=== PATIENT | female | born 1940 | race Two or more races ===

== ENCOUNTER 2024-09-04 01:08 | Inpatient (IN) | payer MEDICARE, OTHER ==
[~2024-09-04] VITALS: Ht 157.5 cm; Wt 58.6 kg
[~2024-09-04 01:08] MED LIST: AMIO200T13 PO; APIX5TAB PO; CEFD300C2 PO; EMPA1TAB PO; EZET1TAB90; FAMO40TA7 PO; FURO1TAB31 PO; LEVO112T2 PO; MID10T PO; SPIR100T4 PO
--- NOTE | 2024-09-04 01:45 | ED.PDOC ---
GI ASSESSMENT HPI Comments 83-year-old female who came to ER via EMS for abdominal pain. Patient has history of nonalcoholic liver cirrhosis. About an hour prior to arrival, patient ate some cereal, and shortly after was she started having abdominal pain, with the episodes of nausea and vomiting. Noted also abdominal distention. Persistence of symptoms prompted patient to come to the ER. Chief Complaint: Abdominal Pain Time Seen by MD: 01:44 Reviewed Notes: Solution Maker Notes Allergies: Coded Allergies: NO KNOWN ALLERGIES (Unverified , 08/12/24) Home Meds Active Scripts Midodrine HCl (Midodrine HCl) 10 Mg Tab, 10 MG PO TID for 30 Days, #90 TAB Prov:NICOL BRIONES MD 08/18/24 Cefdinir (Cefdinir) 300 Mg Cap, 1 CAP PO BID for 7 Days, #14 CAP Prov:NICOL BRIONES MD 08/18/24 Furosemide (Lasix) 40 Mg Tab, 40 MG PO DAILY for 30 Days, #30 TAB Prov:NICOL BRIONES MD 08/18/24 Spironolactone (Spironolactone) 100 Mg Tab, 1 TAB PO DAILY for 30 Days, #30 TAB 11 Refills Prov:NICOL BRIONES MD 08/18/24 Reported Medications Empagliflozin (Jardiance) 10 Mg Tab, 1 TAB PO DAILY 08/13/24 Ezetimibe-Simvastatin (Ezetimibe/Simvastatin 10-20 mg) 1 Tab Tab, 1 EA 08/13/24 Amiodarone HCl (Amiodarone HCl) 200 Mg Tab, 1 TAB PO BID 08/13/24 Famotidine (Famotidine) 40 Mg Tab, 1 TAB PO DAILY 08/13/24 Levothyroxine Sodium (Synthroid) 112 Mcg Tab, 1 TAB PO DAILY 08/13/24 Apixaban Base (ELIQUIS) 5 Mg Tab, 1 TAB PO BID 08/13/24 Information Source: Patient, Emergency Med Personnel Mode of Arrival: EMS Timing: Minutes Duration: Since onset Prehospital treatment: None Quality: Aching Vomitus: Watery Stool: Normal Severity: Moderate Recent: Possible spoiled food Recent Hx of: Liver Disease Pain Location: Diffuse Modifying Factors: Nothing Associated sign and symptoms: Nausea, Vomiting, Abdominal Pain Past Medical History PAST MEDICAL HISTORY: AFIB, Liver (Liver cirrhosis) Surgical History: Pacemaker UNIT NURSE History: Denies all UNIT NURSE Hx Family History Family History: Reviewed,noncontributory to illness Social History Smoker: Non-Smoker Alcohol: Denies ETOH Use Drugs: Denies Drug Use Lives In: Home Constitutional: denies: chills, diaphoresis, fatigue, fever, malaise, sweats, weakness, others EENTM: denies: blurred vision, double vision, ear bleeding, ear discharge, ear drainage, ear pain, ear ringing, eye pain, eye redness, hearing loss, mouth pain, mouth swelling, nasal discharge, nose bleeding, nose congestion, nose pain, photophobia, tearing, throat pain, throat swelling, voice changes, others Respiratory: denies: cough, hemoptysis, orthopnea, SOB at rest, shortness of breath, SOB with excertion, stridor, wheezing, others Cardiovascular: denies: chest pain, dizzy spells, diaphoresis, Dyspnea on exertion, edema, irregular heart beat, left arm pain, lightheadedness, palpitations, PND, syncope, others Gastrointestinal: reports: abdomen distended, abdominal pain, nausea, vomiting; denies: blood streaked bowels, constipated, diarrhea, dysphagia, difficulty swallowing, hematemesis, melena, poor appetite, poor fluid intake, rectal bleeding, rectal pain, others Genitourinary: denies: abnormal vagina bleeding, burning, dyspareunia, dysuria, flank pain, frequency, hematuria, incontinence, pain, , vagina discharge, urgency, others Neurological: denies: dizziness, fainting, headache, left sided numbness, left sided weakness, numbness, paresthesia, pre-existing deficit, right sided numbness, right sided weakness, seizure, speech problems, tingling, tremors, weakness, others Musculoskeletal: denies: back pain, gout, joint pain, joint swelling, muscle pain, muscle stiffness, neck pain, others Integumetry: denies: bruises, change in color, change in hair/nails, dryness, laceration, lesions, lumps, rash, wounds, others Allergic/Immunocompromised: denies: Difficulty Healing, Frequent Infections, Hives, Itching, others Hematologic/Lymphatic: denies: anemia, blood clots, easy bleeding, easy bruising, swollen glands, others Endocrine: denies: excessive hunger, excessive sweating, excessive thirst, excessive urination, flushing, intolerance to cold, intolerance to heat, unexplained weight gain, unexplained weight loss, others Psychiatric: denies: anxiety, bipolar disorder, depression, hopeless, panic disorder, schizophrenia, sleepless, suicidal, others Physical Exam General Appearance: No Apparent Distress, Normal HEENT: Normal ENT Inspection, Pharynx Normal, TMs Normal Neck: Full Range of Motion, Non-Tender, Normal, Normal Inspection Respiratory: Chest Non-Tender, Lungs Clear, No Accessory Muscle Use, No Respiratory Distress, Normal Breath Sounds Cardiovascular: No Edema, No JVD, No Murmur, No Gallop, Normal Peripheral Pulses, Regular Rate/Rhythm Breast Exam: Deferred Gastrointestinal: No Organomegaly, Non Tender, No Pulsatile Mass, Normal Bowel Sounds, Soft Genitalia: Deferred Pelvic: Deferred Rectal: Deferred Extremities: No calf tenderness, Normal capillary refill, Normal inspection, Normal range of motion, Non-tender, No pedal edema Musculoskeletal : Apperance: Normal 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 Was a procedure done?: No GI differential Dx Differential Diagnosis: Diverticular disease, Gastritis/PUD, Gastroenteritis, Hernia, Hepatitis, UTI, Urolithiasis, Electrolyte Imbalance, Food Poisoning X-Ray, Labs, Meds, VS Vital Signs Date Time Temp Pulse Resp B/P (MAP) Pulse Ox O2 Delivery O2 Flow Rate FiO2 09/04/24 04:05 72 15 106/52 (70) 95 09/04/24 02:07 97.9 75 13 101/44 (63) 95 97.9 09/04/24 01:13 93 09/04/24 01:08 97.4 90 18 107/72 (84) 97 97.4 Lab Test 09/04/24 02:50 09/04/24 01:50 Range/Units Troponin I High Sensitivity 13 17 </=34 ng/L White Blood Count 14.6 H 4.4-10.8 10^3/uL Red Blood Count 5.13 4.0-5.20 10^6/uL Hemoglobin 15.9 12.2-16.2 g/dL Hematocrit 47.7 H 36.0-46.0 % Mean Corpuscular Volume 93.0 80.0-100.0 fL Mean Corpuscular Hemoglobin 31.0 28.0-32.0 pg Mean Corpuscular Hemoglobin Concent 33.3 32.0-36.0 g/dL Red Cell Distribution Width 19.1 H 11.8-14.3 % Platelet Count 240 140-450 10^3/uL Mean Platelet Volume 8.8 6.9-10.8 fL Neutrophils (%) (Auto) 86.4 H 37.0-80.0 % Lymphocytes (%) (Auto) 9.5 L 10.0-50.0 % Monocytes (%) (Auto) 3.8 0.0-12.0 % Eosinophils (%) (Auto) 0.0 0.0-7.0 % Basophils (%) (Auto) 0.3 0.0-2.0 % Neutrophils # (Auto) 12.6 H 1.6-8.6 10 ^3/uL Lymphocytes # (Auto) 1.4 0.4-5.4 10 ^3/uL Monocytes # (Auto) 0.6 0-1.3 10 ^3/uL Eosinophils # (Auto) 0 0-0.8 10 ^3/uL Basophils # (Auto) 0 0-0.2 10 ^3/uL Nucleated Red Blood Cells 0.1 % Sodium Level 133 L 136-145 mmol/L Potassium Level 4.5 3.5-5.1 mmol/L Chloride Level 104 98-107 mmol/L Carbon Dioxide Level 15 L 20-31 mmol/L Anion Gap 14 5-15 Blood Urea Nitrogen 72 H 9-23 mg/dL Creatinine 3.30 H 0.550-1.02 mg/dL Glomerular Filtration Rate Calc 13 >90 mL/min BUN/Creatinine Ratio 21.8 H 10.0-20.0 Serum Glucose 109 H 74-106 mg/dL Calcium Level 8.7 8.7-10.4 mg/dL Total Bilirubin 2.3 H 0.2-1.0 mg/dL Aspartate Amino Transferase (AST) 371 H 13-40 U/L Alanine Aminotransferase (ALT) 201 H 7-40 U/L Alkaline Phosphatase 180 H 46-116 U/L Total Protein 7.6 5.7-8.2 g/dL Albumin 3.2 3.2-4.8 g/dL Lipase 117 H 12-53 U/L Current Medications Medications (Trade) Dose Ordered Sig/Kaylee Route Start Time Stop Time Status Last Admin Ondansetron HCl (Zofran) 4 mg ONCE ONCE IV 09/04/24 02:00 09/04/24 02:01 DC 09/04/24 02:00 Sodium Chloride 1,000 ml @ 250 mls/hr Q4H ONCE IV 09/04/24 02:00 09/04/24 05:59 09/04/24 02:00 Time of 1ST Reevaluation: 01:40 Reevaluation 1ST: Unchanged Patient Education/Counseling: Diagnosis, Treatment Family Education/Counseling: No Family Present Departure 1 Departure Time of Disposition: 04:00 Impression: Primary Impression: Acute renal injury Additional Impressions: Dehydration Nausea and vomiting Disposition: 01 HOME / SELF CARE / HOMELESS Condition: Stable Discharged With: Self Comments Nausea and Vomiting with Acute Kidney Injury Chief Complaint: Nausea and vomiting x 2 days History of Present Illness: 83-year-old female with a history of nonalcoholic liver cirrhosis presents via EMS with complaints of nausea and vomiting for the past two days. Patient reports sensation of abdominal swelling but explicitly denies abdominal pain. Initial laboratory studies are significant for acute kidney injury with elevated BUN and creatinine, mild hyponatremia, elevated liver enzymes, and leukocytosis. Imaging reveals ascites and known cirrhotic changes. Review of Systems: Constitutional: Reports nausea and vomiting Gastrointestinal: Reports abdominal swelling, denies abdominal pain All other systems reviewed and negative Lab Results: BUN: 72 mg/dL (Elevated) Creatinine: 3.3 mg/dL (Elevated) Sodium: 133 mEq/L (Mild hyponatremia) Liver Function Tests: - ALT: 201 IU/L (Elevated) - AST: 371 IU/L (Elevated) - Total Bilirubin: 2.3 mg/dL (Elevated) Lipase: 117 U/L (Mildly elevated) WBC: 14.6 K/uL (Elevated) Imaging and Other Relevant Results: Chest X-ray: No acute pathology CT Abdomen/Pelvis: Preliminary findings show ascites and cirrhotic changes of the liver. Awaiting final radiology report. Medical Decision Making: Summary Statement: 83-year-old female with history of liver cirrhosis presenting with nausea/vomiting and found to have acute kidney injury, dehydration, and laboratory evidence of hepatic dysfunction. Problem List: 1. Acute kidney injury 2. Dehydration 3. Nausea and vomiting 4. Liver cirrhosis with elevated liver enzymes 5. Leukocytosis Differential Diagnosis: 1. Prerenal azotemia due to dehydration 2. Hepatorenal syndrome 3. Acute on chronic liver failure 4. Viral gastroenteritis 5. Medication-induced nausea ED Course: Patient received IV fluid bolus and Zofran for symptomatic relief of nausea. Decision made to admit for further management of acute kidney injury, dehydration, and underlying liver disease. Assessment and Plan: 1. Acute Kidney Injury: - Likely prerenal due to dehydration vs. hepatorenal syndrome - Will continue IV fluid resuscitation - Trending of renal function - Nephrology consultation to be considered 2. Nausea/Vomiting: - Symptomatic management with antiemetics - Monitor oral intake 3. Liver Cirrhosis with elevated LFTs: - Continue monitoring liver function - Gastroenterology consultation - Management of ascites 4. Leukocytosis: - Monitor for signs of infection - Blood cultures if fever develops Disposition: Admit to Medicine service Billing Information: ICD-10: N17.9 - Acute kidney failure, unspecified ICD-10: K74.60 - Unspecified cirrhosis of liver ICD-10: R11.2 - Nausea with vomiting, unspecified ICD-10: E86.0 - Dehydration Critical Care Note Critical Care Time?: No Stability Stability form required: No Heart Score Heart Score: Heart Score Response (Comments) Value History N/A 0 EKG N/A 0 Age N/A 0 Risk Factors N/A 0 Troponin N/A 0 Total 0 I personally scribed for CATIE CONTEH MD ([email or web address]) on 09/04/24 at 01:44. Electronically submitted by Adelso White ([email or web address]). CATIE CONTEH MD Sep 04, 2024 01:44
[2024-09-04] MEDS: ONDANSETRON HCL 4 MG/2 ML VIAL IV ONE (02:00)
[2024-09-04] MEDS: SODIUM CHLORIDE 0.9% 1,000 ML IV ONE (02:00)
[2024-09-04 02:10] VITALS: PULSE 68; RESP 15; O2SAT 98
--- NOTE | 2024-09-04 02:51 | DVH ---
CHEST RADIOGRAPH Indication: SOB Technique: Single frontal view of the chest was obtained COMPARISON: XY CHEST PORTABLE on DOS: 08/12/24 FINDINGS: Lines and Tubes: Left anterior chest wall cardiac pacing device. Lungs: Clear Pleura: No effusion. No pneumothorax. Cardiomediastinal contours: Unremarkable Bones: Unremarkable IMPRESSION: 1. No acute disease.
[2024-09-04 03:06] LABS: Albumin 3.2 g/dL (3.2-4.8); Anion Gap 14 (5-15); BUN/Creatinine Ratio 21.8 (10.0-20.0); Calcium 8.7 mg/dL (8.7-10.4); Chloride 104 mmol/L (98-107); Potassium 4.5 mmol/L (3.5-5.1); Total Protein 7.6 g/dL (5.7-8.2)
[2024-09-04 03:19] LABS: Basophils # (auto) 0 10 ^3/uL (0-0.2); Basophils % (auto) 0.3 % (0.0-2.0); Eosinophils # (auto) 0 10 ^3/uL (0-0.8); Hematocrit 47.7 % (36.0-46.0); Hemoglobin 15.9 g/dL (12.2-16.2); Lymphocytes # (auto) 1.4 10 ^3/uL (0.4-5.4); Lymphocytes % (auto) 9.5 % (10.0-50.0); Mean Corpuscular Hgb Conc. 33.3 g/dL (32.0-36.0); Monocytes # (auto) 0.6 10 ^3/uL (0-1.3); Monocytes % (auto) 3.8 % (0.0-12.0); Neutrophils # (auto) 12.6 10 ^3/uL (1.6-8.6); Neutrophils % (auto) 86.4 % (37.0-80.0); Nucleated Red Blood Cells % 0.1 %; Platelet Count (auto) 240 10^3/uL (140-450); Red Blood Cells 5.13 10^6/uL (4.0-5.20); Red Cell Distribution Width 19.1 % (11.8-14.3); White Blood Cell 14.6 10^3/uL (4.4-10.8)
[2024-09-04 03:21] LABS: Alanine Aminotransferase 201 U/L (7-40); Alkaline Phosphatase 180 U/L (46-116); Aspartate Aminotransferase 371 U/L (13-40); Bilirubin, Total 2.3 mg/dL (0.2-1.0); Blood Urea Nitrogen 72 mg/dL (9-23); Carbon Dioxide 15 mmol/L (20-31); Glucose 109 mg/dL (74-106); Lipase 117 U/L (12-53); Sodium 133 mmol/L (136-145)
--- NOTE | 2024-09-04 04:48 | DVH ---
Exam: CT CT AB PEL WO CON-NO ORAL OR IV History: abd pain Comparison Study: CT CT AB PEL WO CON-NO ORAL OR IV on DOS: 08/12/24 Technique: Multidetector spiral CT of the abdomen was performed from lung bases to pubic symphysis. I maging was performed without IV contrast. Axial, coronal and sagittal multiplanar reformats were obta ined from the axial data set by the technologist. Radiation Dose : 1. Abdomen/Pelvis: CTDIvol 13.8 mGy, DLP 806 mGy*cm. Findings: Evaluation of solid organs is limited due to lack of intravenous contrast use. Lung Bases: Cardiomegaly. Coronary artery calcifications. Vascular calcifications of the aorta. Left chest wall pacemaker. Liver: Hepatic cirrhosis. Gallbladder and Biliary Tree: Unremarkable Spleen: Unremarkable Pancreas: The pancreas is grossly normal in appearance. Adrenal Glands: Unremarkable Kidneys: Kidneys are grossly normal without calculi or hydronephrosis. Bladder: Grossly unremarkable for degree of distention. Bowel: The stomach is grossly normal in appearance. Small bowel and colon are normal in caliber and d istribution. The appendix is not visualized; however, no secondary findings of acute appendicitis shyla ntified. Ascites: Small volume Lymphadenopathy: No mesenteric, retroperitoneal or periportal lymphadenopathy. Abdominal Wall and Mesentery: Unremarkable. Vasculature: The visualized abdominal aorta is normal in size and caliber. Evaluation of abdominal a nd pelvic vessels is limited due to lack of intravenous contrast. Pelvic Organs: The uterus is surgically absent. Musculoskeletal: No aggressive focal bony lesions, acute fractures or dislocation. Degenerative woods es of the spine. IMPRESSION: Hepatic cirrhosis and small volume ascites. Radiation optimization: All CT scans at this facility use at least one of these dose optimization ramiro hniques: automated exposure control mA and/or kV adjustment per patient size (includes targeted exam s where dose is matched to clinical indication) or iterative reconstruction.
--- NOTE | 2024-09-04 05:00 | ECG ---
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
[2024-09-04] MEDS ORDERED: MORPHINE SULFATE INJ 2 MG/ml SYRG IV PRN (05:30)
[2024-09-04] MEDS: SODIUM CHLORIDE 0.9% 1,000 ML IV SCH (05:30)
[2024-09-04] MEDS: cefTRIAXone 2GM/50ML D5W 50 ML IV SCH (05:30)
[2024-09-04] MEDS ORDERED: LORazepam 0.5 MG TAB PO PRN (05:30)
[2024-09-04] MEDS ORDERED: DOCUSATE SOD 100 MG CAP PO PRN (05:30)
--- NOTE | 2024-09-04 05:58 | DVHHP2 ---
History of Present Illness Reason for Visit: abd pain History of Present Illness 83-year-old female past medical history of liver cirrhosis also history of AFib with a Surgical pacemaker in place comes to the ED with complaints of abdominal pain patient with a known history of nonalcoholic liver cirrhosis states prior to arriving to the ED she had something to eat followed by acute pain and nausea and vomiting states that her abdomen feels like it is distended or bloated and because the pain in the bloating sensation would not go away patient came to the ED for further evaluation and management at this time all the patient's medications were recently adjusted this month continues to take medications La six spironolactone amiodarone and apixaban Cardiovascular: AFIB, HTN Hepatobiliary: Cirrhosis Renal/: Acute renal failure Review of Systems Constitutional: Yes: Weakness Eyes: No: Pain, Vision change, Conjunctivae inflammation, Eyelid inflammation, Other, Redness ENT: No: Ear pain, Ear discharge, Nose pain, Nose discharge, Nose congestion, Mouth pain, Mouth swelling, Throat pain, Throat swelling, Other Respiratory: No: Cough, Dry, Shortness of breath, SOB with excertion, Wheezing, Hemoptysis, Pleuritic Pain, Sputum, Wheezing, Other Cardiovascular: No: Chest Pain, Palpitations, Orthopnea, Paroxysmal Noc. Dyspnea, Edema, Lt Headedness, Other Gastrointestinal: Nausea, Vomiting, Abdominal Pain Genitourinary: No Dysuria, No Frequency, No Incontinence, No Hematuria, No Retention, No Other Musculoskeletal: No: other, neck pain, shoulder pain, arm pain, back pain, hand pain, leg pain, foot pain Skin: No: Rash, Lesions, Jaundice, Bruising, Other Neurological: Weakness Allergies: Coded Allergies: NO KNOWN ALLERGIES (Unverified , 08/12/24) Exam Vital Signs Vital Signs Date Time Temp Pulse Resp B/P (MAP) Pulse Ox O2 Delivery O2 Flow Rate FiO2 09/04/24 04:05 72 15 106/52 (70) 95 09/04/24 02:10 Room Air* 0 21 09/04/24 02:07 97.9 97.9 Exam General Appearance: No Apparent Distress, Normal HEENT: Normal ENT Inspection, Pharynx Normal, TMs Normal Neck: Full Range of Motion, Non-Tender, Normal, Normal Inspection Respiratory: Chest Non-Tender, Lungs Clear, No Accessory Muscle Use, No Respiratory Distress, Normal Breath Sounds Cardiovascular: No Edema, No JVD, No Murmur, No Gallop, Normal Peripheral Pulses, Regular Rate/Rhythm Breast Exam: Deferred Gastrointestinal: No Organomegaly, Non Tender, No Pulsatile Mass, Normal Bowel Sounds, Soft Genitalia: Deferred Pelvic: Deferred Rectal: Deferred Extremities: No calf tenderness, Normal capillary refill, Normal inspection, Normal range of motion, Non-tender, No pedal edema Musculoskeletal : Apperance: Normal 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, 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, No Motor Deficits, Normal Affect, Normal Mood, No Sensory Deficits Cerebellar Function: Normal Reflexes: Normal Skin: Dry, Normal Color, Warm Lymphatic: No Adenopathy Labs/Xrays Labs Test 09/04/24 04:58 09/04/24 01:50 Range/Units White Blood Count 14.6 H 4.4-10.8 10^3/uL Red Blood Count 5.13 4.0-5.20 10^6/uL Hemoglobin 15.9 12.2-16.2 g/dL Hematocrit 47.7 H 36.0-46.0 % Mean Corpuscular Volume 93.0 80.0-100.0 fL Mean Corpuscular Hemoglobin 31.0 28.0-32.0 pg Mean Corpuscular Hemoglobin Concent 33.3 32.0-36.0 g/dL Red Cell Distribution Width 19.1 H 11.8-14.3 % Platelet Count 240 140-450 10^3/uL Mean Platelet Volume 8.8 6.9-10.8 fL Neutrophils (%) (Auto) 86.4 H 37.0-80.0 % Lymphocytes (%) (Auto) 9.5 L 10.0-50.0 % Monocytes (%) (Auto) 3.8 0.0-12.0 % Eosinophils (%) (Auto) 0.0 0.0-7.0 % Basophils (%) (Auto) 0.3 0.0-2.0 % Neutrophils # (Auto) 12.6 H 1.6-8.6 10 ^3/uL Lymphocytes # (Auto) 1.4 0.4-5.4 10 ^3/uL Monocytes # (Auto) 0.6 0-1.3 10 ^3/uL Eosinophils # (Auto) 0 0-0.8 10 ^3/uL Basophils # (Auto) 0 0-0.2 10 ^3/uL Nucleated Red Blood Cells 0.1 % Sodium Level 133 L 136-145 mmol/L Potassium Level 4.5 3.5-5.1 mmol/L Chloride Level 104 98-107 mmol/L Carbon Dioxide Level 15 L 20-31 mmol/L Anion Gap 14 5-15 Blood Urea Nitrogen 72 H 9-23 mg/dL Creatinine 3.30 H 0.550-1.02 mg/dL Glomerular Filtration Rate Calc 13 >90 mL/min BUN/Creatinine Ratio 21.8 H 10.0-20.0 Serum Glucose 109 H 74-106 mg/dL Calcium Level 8.7 8.7-10.4 mg/dL Total Bilirubin 2.3 H 0.2-1.0 mg/dL Aspartate Amino Transferase (AST) 371 H 13-40 U/L Alanine Aminotransferase (ALT) 201 H 7-40 U/L Alkaline Phosphatase 180 H 46-116 U/L Total Protein 7.6 5.7-8.2 g/dL Albumin 3.2 3.2-4.8 g/dL Lipase 117 H 12-53 U/L Assessment/Plan Assessment/Plan Admit to [facility] Abdominal pain with a history of ascites and cirrhosis CT scan confirmed cirrhosis CHRISTOPHER possibly in the setting of hepatorenal syndrome Abdominal pain with nausea and vomiting Elevated white count noted possible SBP IV antibiotics Gentle IV hydration Possible need for GI evaluation ICD-10: N17.9 - Acute kidney failure, unspecified ICD-10: K74.60 - Unspecified cirrhosis of liver ICD-10: R11.2 - Nausea with vomiting, unspecified ICD-10: E86.0 - Dehydration. Failed Plan discussed with: Patient My Orders Orders - MOMO BRENNAN MD Procedure Category Date Status Time Admit ADMIT 09/04/24 Transmitted 05:27 Code Status CODE 09/04/24 Transmitted 05:27 Vital Signs JULIAN 09/04/24 In Process 05:27 Review Orders With JULIAN 09/04/24 In Process Adm. 05:27 Npo (Nothing By DIET 09/04/24 Transmitted Mouth) Diet Breakfast Sodium Chloride 0.9% PHA 09/04/24 Logged 05:30 Lorazepam Tablet PHA 09/04/24 Logged (Ativan Tablet) 05:30 Docusate Sodium PHA 09/04/24 Transmitted Capsule (Colace 05:30 Notify Of Changes [facility] 09/04/24 In Process From Base 05:27 Advance Directive JULIAN 09/04/24 In Process 05:27 Patient Condition ORDERS 09/04/24 Transmitted 05:27 Allergies [facility] 09/04/24 In Process 05:27 Ondansetron Hcl [facility] 09/04/24 Transmitted (Zofran) 05:30 Morphine 2mg Iv Q4hprn PHA 09/04/24 Transmitted 05:30 Notify Md Of Changes [facility] 09/04/24 In Process From Base 05:27 Oxygen By Nasal RT 09/04/24 Transmitted Cannula 05:27 Amiodarone Tablet [facility] 09/04/24 Transmitted (Cordarone Tablet) 10:00 Furosemide Tablet PHA 09/04/24 Transmitted (Lasix Tablet) 10:00 Levothyroxine Tablet [facility] 09/04/24 Transmitted (Synthroid Tablet) 10:00 Midodrine Tablet [facility] 09/04/24 Transmitted (Proamatine Tablet) 06:00 (Nf) Famotidine PHA 09/04/24 Transmitted 10:00 (Nf) Spironolactone PHA 09/04/24 Transmitted 10:00 Ceftriaxone Ivpb [facility] 09/04/24 Transmitted Rocephin 05:30 * [facility] [employer] CONS 09/04/24 Transmitted 05:27 Date of Service: Sep 04, 2024 Billing Provider: MOMO BRENNAN MD Common Visit Codes: [id number] INP/OBS CARE (HIGH) MOMO BRENNAN MD Sep 04, 2024 05:58
[2024-09-04] MEDS: MIDODRINE HCL 10 MG TAB PO SCH ×2 (06:00→12:00)
[2024-09-04] MEDS: LEVOTHYROXINE SODIUM 112 MCG TAB PO SCH (06:38)
[2024-09-04 09:09] VITALS: PULSE 110; PULSE 96; RESP 18; TEMP 97.9; O2SAT 96; O2SAT 98
[2024-09-04] MEDS: FUROSEMIDE 40 MG TAB PO SCH (10:00)
[2024-09-04] MEDS: SPIRONOLACTONE 25 MG TAB PO SCH (10:00)
[2024-09-04] MEDS: FAMOTIDINE 20 MG TAB PO SCH (10:29)
[2024-09-04] MEDS: AMIODARONE HCL 200 MG TAB PO SCH (10:30)
[2024-09-04 12:30] VITALS: BP 107/55; PULSE 96; RESP 18; TEMP 97.8; O2SAT 96
--- NOTE | 2024-09-04 13:32 | DVHPN2 ---
Assessment/Plan Assessment/Plan Progress note 83 year old female with JON cirrhosis, afib on eliquis, sick sinus on PPM admitted for nause and vomiting. 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 on CKD start ceftriaxone tap if pocket available POCUS abd midodrine lasix aldactone nephro consult pain mgmt resume home meds and eliquis full code diet renal dvt ppx on eliquis Plan discussed with: Patient My Orders Orders - NICOL BRIONES MD Procedure Category Date Status Time Midodrine Tablet PHA 09/04/24 In Process (Proamatine Tablet) 12:00 Clear Liq Diet DIET 09/04/24 Transmitted Lunch *[facility] CONS 09/04/24 Transmitted -[place] 11:44 Communication Order ORDERS 09/04/24 Transmitted 11:45 Date of Service: Sep 04, 2024 Billing Provider: NICOL BRIONES MD Common Visit Codes: [id number] INP/OBS CARE(HIGH) NICOL BRIONES MD Sep 04, 2024 13:32
--- NOTE | 2024-09-04 13:35 | DVHINCON2 ---
GI Consult Consult Note GI consult note Date of Consultation: 09/04/2024 Chief Complaint: Cirrhosis evaluation Referring Physician: Dr. Calderón H&P: 83-year-old female presented to ER with abdominal pain Patient has history of nonalcoholic liver cirrhosis Patient has abdominal distention, which improved after catheterization Patient has nausea and vomiting, denies hematemesis No melena or red blood in stool Multiple EGDs in past, last EGD 2020 Dr. Pinto. Pathology shows mild chronic inactive gastritis with focal intestinal metaplasia Status post paracentesis two weeks ago at [facility] Past Medical History: AFIB, Liver (Liver cirrhosis) Past Surgical History: Pacemaker Social History: NO smoking, drinking ETOH and use of illegal drugs. Family History: Noncontributory Review of Systems: Constitutional: no fever, chill, weight loss HEENT: no eye pain, no hearing loss, no oral lesion, no scleral icterus Heart: no chest pain, no chest pressure Lung: no cough, no dyspnea with exertion Abdomen: see HPI Physical exam: General: NAD, AAOX3 Chest: lung león clear to auscultation Heart: RRR, no murmur Abdomen: Mild-distended, no tenderness to palpation, +BS Labs: Labs Test 09/04/24 04:58 09/04/24 01:50 Range/Units Troponin I High Sensitivity 14 </=34 ng/L White Blood Count 14.6 H 4.4-10.8 10^3/uL Red Blood Count 5.13 4.0-5.20 10^6/uL Hemoglobin 15.9 12.2-16.2 g/dL Hematocrit 47.7 H 36.0-46.0 % Mean Corpuscular Volume 93.0 80.0-100.0 fL Mean Corpuscular Hemoglobin 31.0 28.0-32.0 pg Mean Corpuscular Hemoglobin Concent 33.3 32.0-36.0 g/dL Red Cell Distribution Width 19.1 H 11.8-14.3 % Platelet Count 240 140-450 10^3/uL Mean Platelet Volume 8.8 6.9-10.8 fL Neutrophils (%) (Auto) 86.4 H 37.0-80.0 % Lymphocytes (%) (Auto) 9.5 L 10.0-50.0 % Monocytes (%) (Auto) 3.8 0.0-12.0 % Eosinophils (%) (Auto) 0.0 0.0-7.0 % Basophils (%) (Auto) 0.3 0.0-2.0 % Neutrophils # (Auto) 12.6 H 1.6-8.6 10 ^3/uL Lymphocytes # (Auto) 1.4 0.4-5.4 10 ^3/uL Monocytes # (Auto) 0.6 0-1.3 10 ^3/uL Eosinophils # (Auto) 0 0-0.8 10 ^3/uL Basophils # (Auto) 0 0-0.2 10 ^3/uL Nucleated Red Blood Cells 0.1 % Sodium Level 133 L 136-145 mmol/L Potassium Level 4.5 3.5-5.1 mmol/L Chloride Level 104 98-107 mmol/L Carbon Dioxide Level 15 L 20-31 mmol/L Anion Gap 14 5-15 Blood Urea Nitrogen 72 H 9-23 mg/dL Creatinine 3.30 H 0.550-1.02 mg/dL Glomerular Filtration Rate Calc 13 >90 mL/min BUN/Creatinine Ratio 21.8 H 10.0-20.0 Serum Glucose 109 H 74-106 mg/dL Calcium Level 8.7 8.7-10.4 mg/dL Total Bilirubin 2.3 H 0.2-1.0 mg/dL Aspartate Amino Transferase (AST) 371 H 13-40 U/L Alanine Aminotransferase (ALT) 201 H 7-40 U/L Alkaline Phosphatase 180 H 46-116 U/L Total Protein 7.6 5.7-8.2 g/dL Albumin 3.2 3.2-4.8 g/dL Lipase 117 H 12-53 U/L Imaging: CT abdomen pelvis IMPRESSION: Hepatic cirrhosis and small volume ascites. Assessment: Nausea and vomiting Liver cirrhosis JON Gastritis Ascites Plan: Discussed with Dr. Guerrero Hepatitis panel Liver ultrasound PT INR, ammonia, DEQUAN Zofran and Protonix Clear liquid diet advance as tolerated We will continue to follow patient Plan discussed with patient and RN Thank you for this consult Date of Service: Sep 04, 2024 Billing Provider: JULIEN PAINTER Common Visit Codes: CONSULT ONLY Consultation Codes: [id number] CONSULT <45MIN JULIEN PAINTER Sep 04, 2024 13:35
--- NOTE | 2024-09-04 14:46 | DVH ---
INDICATION: liver cirrhosis, JON TECHNIQUE: Multiple real-time sonographic images were obtained of the right upper quadrant. COMPARISON: None FINDINGS: The liver demonstrates coarsened echotexture without focal mass lesions. The liver measures 16 cm. There is no intrahepatic or extrahepatic ductal dilatation. The common duct measures not we ll visualized due to obscuration from bowel gas. No flow is visualized in the portal vein. Gallbladder sludge. The gallbladder wall measures 4 mm and is thickened. The right kidney measures 9.2 cm. The right kidney is normal in contour, size, and shape. The echoge nicity is normal. There is no hydronephrosis. The pancreas is not well visualized due to overlying bowel gas. IMPRESSION: Hepatic cirrhosis. Possible portal vein thrombus. Gallbladder sludge. Nonspecific gallbladder wall thickening which can be seen in setting of chronic l iver disease.
[2024-09-04 15:02] LABS: Hepatitis B Core Total AB Negative (Negative)
[2024-09-04 15:28] LABS: Hepatitis A Total Antibody Positive (Negative); Hepatitis B Surface Antibody Negative (Negative)
[2024-09-04 15:29] LABS: Hepatitis B Surface Antigen Negative (Negative); Hepatitis C Antibody Negative (Negative)
--- NOTE | 2024-09-04 15:33 | DVHNC2 ---
Other Procedure Notes PARACENTESIS USG guided PROCEDURE SUMMARY: A time-out was performed. My hands were washed immediately prior to the procedure. I wore sterile gloves throughout the procedure. The area was cleansed and draped in usual sterile fashion using chlorhexidine scrub. Anesthesia was achieved with 1% lidocaine. The right lumbar region of the abdomen was prepped and draped in a sterile fashion using chlorhexidine scrub. 1% lidocaine was used to numb the skin, soft tissue and peritoneum. The paracentesis catheter was inserted and advanced with negative pressure until slightly yellowish colored fluid was aspirated. Approximately 60 mL of ascitic fluid was collected and sent for laboratory analysis. The catheter was then connected to the Vacutainer and 1 liters of additional ascitic fluid were drained. The catheter was removed and no leaking was noted. A band-aid was placed over the puncture wound. The patient tolerated the procedure well without any immediate complications. Gerardo Lemus PGY2 Internal Medicine Nicol Briones MD Attending Physician Date of Service: Sep 04, 2024 Billing Provider: NICOL BRIONES MD Common Visit Codes: PROCEDURE ONLY Procedure Codes: [id number] W/O IMAGING GERARDO LEMUS RESIDENT Sep 04, 2024 15:33 NICOL BRIONES MD Sep 04, 2024 21:21
[2024-09-04 16:03] LABS: INR 1.49 (0.9-1.15); Prothrombin Time 15.2 sec (9.3-11.8)
[2024-09-04 17:13] VITALS: BP 91/58; PULSE 89; RESP 18; TEMP 98; O2SAT 95
[2024-09-04 18:50] VITALS: BP 115/73; PULSE 89; RESP 18; TEMP 98; O2SAT 95
[2024-09-04 19:15] LABS: Body Fluid Red Blood Cells 290 CUMM (0-2000); Body Fluid White Blood Cells 114 CUMM (0-200)
[2024-09-04 21:17] VITALS: BP 95/62; PULSE 72; RESP 17; TEMP 97.6; O2SAT 95
[2024-09-04] MEDS: APIXABAN 5 MG TAB PO SCH (21:50)
[2024-09-05] VITALS (7 sets, daily range): BP systolic 95–112; BP diastolic 51–65; PULSE 70–87; RESP 18; TEMP 97.2–97.7; O2SAT 95–97
[2024-09-05 05:45] LABS: Urine Bacteria FEW /hpf (None Seen); Urine Blood 2+ /uL (Negative); Urine Budding Yeast OCCASIONAL /hpf (None Seen); Urine Clarity Clear (Clear); Urine Color Light-Yellow (Yellow); Urine Hyaline Cast FEW /lpf (0 - 2); Urine Mucus FEW (None Seen); Urine Protein, UAD TRACE (Negative); Urine Specific Gravity 1.014 (1.001-1.035); Urine Squamous Epithelial Cell None Seen /hpf (<5); Urine Urobilinogen Normal (Negative); Urine WBC 11 /HPF (0-5); Urine pH 5.5 (5.0-9.0)
[2024-09-05 07:24] LABS: Basophils # (auto) 0 10 ^3/uL (0-0.2); Basophils % (auto) 0.4 % (0.0-2.0); Eosinophils # (auto) 0 10 ^3/uL (0-0.8); Hemoglobin 15.4 g/dL (12.2-16.2); Lymphocytes % (auto) 8.7 % (10.0-50.0); Mean Corpuscular Hemoglobin 31.2 pg (28.0-32.0); Mean Corpuscular Hgb Conc. 33.4 g/dL (32.0-36.0); Mean Corpuscular Volume 93.4 fL (80.0-100.0); Monocytes # (auto) 0.6 10 ^3/uL (0-1.3); Monocytes % (auto) 4.7 % (0.0-12.0); Neutrophils # (auto) 10.3 10 ^3/uL (1.6-8.6); Neutrophils % (auto) 86.2 % (37.0-80.0); Nucleated Red Blood Cells % 0.1 %; Platelet Count (auto) 184 10^3/uL (140-450); Red Blood Cells 4.92 10^6/uL (4.0-5.20); Red Cell Distribution Width 19.6 % (11.8-14.3)
[2024-09-05 07:29] LABS: Chloride 107 mmol/L (98-107); Potassium 4.8 mmol/L (3.5-5.1)
[2024-09-05 07:35] LABS: BUN/Creatinine Ratio 27.2 (10.0-20.0); Glucose 89 mg/dL (74-106)
[2024-09-05 07:36] LABS: Magnesium 2.6 mg/dL (1.6-2.6)
[2024-09-05 07:37] LABS: Phosphorus 4.4 mg/dL (2.4-5.1)
[2024-09-05 07:40] LABS: Calcium 8.3 mg/dL (8.7-10.4); Sodium 136 mmol/L (136-145)
[2024-09-05 07:44] LABS: Blood Urea Nitrogen 82 mg/dL (9-23)
[2024-09-05 07:48] LABS: Anion Gap 13 (5-15)
[2024-09-05 07:49] LABS: Carbon Dioxide 16 mmol/L (20-31)
--- NOTE | 2024-09-05 11:06 | DVHINCON2 ---
Date of service: Sep 05, 2024 Referring Physician Hospitalist Reason for Consultation Acute kidney injury History of Present Illness 83-year-old female with past medical history of nonalcoholic liver disease who presents to the hospital complaining of nausea and vomiting. Nephrology consulted due to elevated creatinine level. Patient was status post diagnostic and therapeutic paracentesis with 1 L fluid removed. Comparison of previous recent admission less than 2 weeks ago GFR was in the approximate mid 20s w/ cr 2.0 indicating significant kidney dysfunction. Family at bedside says she has no previous kidney disease. She now presents with a creatinine of 3.3 Allergies: Coded Allergies: NO KNOWN ALLERGIES (Unverified , 08/12/24) Home Meds Active Scripts Midodrine HCl (Midodrine HCl) 10 Mg Tab, 10 MG PO TID for 30 Days, #90 TAB Prov:NICOL BRIONES MD 08/18/24 Cefdinir (Cefdinir) 300 Mg Cap, 1 CAP PO BID for 7 Days, #14 CAP Prov:NICOL BRIONES MD 08/18/24 Furosemide (Lasix) 40 Mg Tab, 40 MG PO DAILY for 30 Days, #30 TAB Prov:NICOL BRIONES MD 08/18/24 Spironolactone (Spironolactone) 100 Mg Tab, 1 TAB PO DAILY for 30 Days, #30 TAB 11 Refills Prov:NICOL BRIONES MD 08/18/24 Reported Medications Empagliflozin (Jardiance) 10 Mg Tab, 1 TAB PO DAILY 08/13/24 Ezetimibe-Simvastatin (Ezetimibe/Simvastatin 10-20 mg) 1 Tab Tab, 1 EA 08/13/24 Amiodarone HCl (Amiodarone HCl) 200 Mg Tab, 1 TAB PO BID 08/13/24 Famotidine (Famotidine) 40 Mg Tab, 1 TAB PO DAILY 08/13/24 Levothyroxine Sodium (Synthroid) 112 Mcg Tab, 1 TAB PO DAILY 08/13/24 Apixaban Base (ELIQUIS) 5 Mg Tab, 1 TAB PO BID 08/13/24 Current Medications Current Medications Medications (Trade) Dose Ordered Sig/Kaylee Route PRN Reason Start Time Stop Time Status Last Admin Midodrine (Proamatine Tablet) 10 mg TID@0600,1200,1800 PO 09/04/24 12:00 09/05/24 06:10 Apixaban (Eliquis) 5 mg BID PO 09/04/24 22:00 09/05/24 09:49 Sodium Bicarbonate 650 mg TID PO 09/05/24 14:00 Albumin Human 100 ml @ 100 mls/hr Q8H IV 09/05/24 11:00 09/06/24 03:59 Family History: Cardiovascular disease G8 FATHER Review of Systems weakness and abdomen distension H&P Exam Vital Signs/I&O Vital Sign Date Time Temp Pulse Resp B/P (MAP) Pulse Ox O2 Delivery O2 Flow Rate FiO2 09/05/24 09:49 108/52 09/05/24 08:00 82 18 95 Room Air* 0 21 09/05/24 05:37 97.7 97.7 Intake and Output 09/04/24 09/05/24 19:00 07:00 Intake Total 740 ml 150 ml Output Total 500 ml 300 ml Balance 240 ml -150 ml Intake Oral 740 ml 150 ml Output Urine Total 500 ml 300 ml Physical Exam elderly female NAD mod abd distension + fluid wave no ankle edema no peripheral edema mildly jaundice Labs/Diagnostic Data Labs/Diagnostic Data Laboratory Tests Test 09/05/24 05:52 09/05/24 05:22 09/04/24 15:00 09/04/24 14:45 Range/Units White Blood Count 12.0 H 4.4-10.8 10^3/uL Red Blood Count 4.92 4.0-5.20 10^6/uL Hemoglobin 15.4 12.2-16.2 g/dL Hematocrit 46.0 36.0-46.0 % Mean Corpuscular Volume 93.4 80.0-100.0 fL Mean Corpuscular Hemoglobin 31.2 28.0-32.0 pg Mean Corpuscular Hemoglobin Concent 33.4 32.0-36.0 g/dL Red Cell Distribution Width 19.6 H 11.8-14.3 % Platelet Count 184 140-450 10^3/uL Mean Platelet Volume 9.1 6.9-10.8 fL Neutrophils (%) (Auto) 86.2 H 37.0-80.0 % Lymphocytes (%) (Auto) 8.7 L 10.0-50.0 % Monocytes (%) (Auto) 4.7 0.0-12.0 % Eosinophils (%) (Auto) 0.0 0.0-7.0 % Basophils (%) (Auto) 0.4 0.0-2.0 % Neutrophils # (Auto) 10.3 H 1.6-8.6 10 ^3/uL Lymphocytes # (Auto) 1.0 0.4-5.4 10 ^3/uL Monocytes # (Auto) 0.6 0-1.3 10 ^3/uL Eosinophils # (Auto) 0 0-0.8 10 ^3/uL Basophils # (Auto) 0 0-0.2 10 ^3/uL Nucleated Red Blood Cells 0.1 % Sodium Level 136 136-145 mmol/L Potassium Level 4.8 3.5-5.1 mmol/L Chloride Level 107 98-107 mmol/L Carbon Dioxide Level 16 L 20-31 mmol/L Anion Gap 13 5-15 Blood Urea Nitrogen 82 #*H 9-23 mg/dL Creatinine 3.02 H 0.550-1.02 mg/dL Glomerular Filtration Rate Calc 15 >90 mL/min BUN/Creatinine Ratio 27.2 H 10.0-20.0 Serum Glucose 89 74-106 mg/dL Calcium Level 8.3 L 8.7-10.4 mg/dL Phosphorus Level 4.4 2.4-5.1 mg/dL Magnesium Level 2.6 1.6-2.6 mg/dL Ferritin 242.1 10-291 ng/mL Urine Color Light-yellow Yellow Urine Clarity Clear Clear Urine pH 5.5 5.0-9.0 Urine Specific [place] 1.014 1.001-1.035 Urine Protein Trace H Negative Urine Ketones Negative Negative Urine Blood 2+ H Negative /uL Urine Nitrite Negative Negative Urine Bilirubin Negative Negative Urine Urobilinogen Normal Negative mg/dL Urine Leukocyte Esterase Trace Negative /uL Urine RBC 17 0 - 4 /hpf Urine Microscopic WBC 11 H 0-5 /HPF Urine Squamous Epithelial Cells None seen <5 /hpf Urine Bacteria Few H None Seen /hpf Urine Hyaline Casts Few 0 - 2 /lpf Urine Granular Casts Few 0 /lpf Urine Mucus Few None Seen Urine Yeast (Budding) Occasional None Seen /hpf Urine Sodium 52 40-220 mmol/L Urine Glucose Normal Normal mg/dL Prothrombin Time 15.2 H 9.3-11.8 sec Prothrombin Time INR 1.49 H 0.9-1.15 Ammonia < 10 L 11-32 umol/L Body Fluid Source Peritoneal fluid Body Fluid pH 8.0 Body Fluid WBC (Manual) 114 0-200 CUMM Body Fluid RBC (Manual) 290 0-2000 CUMM Body Fluid Mononuclear Cells 95 % Body Fluid Polymorphonuclear Cells 5 0-25 % Test 09/04/24 04:58 09/04/24 02:50 09/04/24 01:50 Range/Units Troponin I High Sensitivity 14 13 17 </=34 ng/L White Blood Count 14.6 H 4.4-10.8 10^3/uL Red Blood Count 5.13 4.0-5.20 10^6/uL Hemoglobin 15.9 12.2-16.2 g/dL Hematocrit 47.7 H 36.0-46.0 % Mean Corpuscular Volume 93.0 80.0-100.0 fL Mean Corpuscular Hemoglobin 31.0 28.0-32.0 pg Mean Corpuscular Hemoglobin Concent 33.3 32.0-36.0 g/dL Red Cell Distribution Width 19.1 H 11.8-14.3 % Platelet Count 240 140-450 10^3/uL Mean Platelet Volume 8.8 6.9-10.8 fL Neutrophils (%) (Auto) 86.4 H 37.0-80.0 % Lymphocytes (%) (Auto) 9.5 L 10.0-50.0 % Monocytes (%) (Auto) 3.8 0.0-12.0 % Eosinophils (%) (Auto) 0.0 0.0-7.0 % Basophils (%) (Auto) 0.3 0.0-2.0 % Neutrophils # (Auto) 12.6 H 1.6-8.6 10 ^3/uL Lymphocytes # (Auto) 1.4 0.4-5.4 10 ^3/uL Monocytes # (Auto) 0.6 0-1.3 10 ^3/uL Eosinophils # (Auto) 0 0-0.8 10 ^3/uL Basophils # (Auto) 0 0-0.2 10 ^3/uL Nucleated Red Blood Cells 0.1 % Sodium Level 133 L 136-145 mmol/L Potassium Level 4.5 3.5-5.1 mmol/L Chloride Level 104 98-107 mmol/L Carbon Dioxide Level 15 L 20-31 mmol/L Anion Gap 14 5-15 Blood Urea Nitrogen 72 H 9-23 mg/dL Creatinine 3.30 H 0.550-1.02 mg/dL Glomerular Filtration Rate Calc 13 >90 mL/min BUN/Creatinine Ratio 21.8 H 10.0-20.0 Serum Glucose 109 H 74-106 mg/dL Calcium Level 8.7 8.7-10.4 mg/dL Total Bilirubin 2.3 H 0.2-1.0 mg/dL Aspartate Amino Transferase (AST) 371 H 13-40 U/L Alanine Aminotransferase (ALT) 201 H 7-40 U/L Alkaline Phosphatase 180 H 46-116 U/L Total Protein 7.6 5.7-8.2 g/dL Albumin 3.2 3.2-4.8 g/dL Lipase 117 H 12-53 U/L Hepatitis A Antibody Total Positive H Negative Hepatitis B Surface Antigen Negative Negative Hepatitis B Surface Antibody Negative Negative Hepatitis B Core Total Antibody Negative Negative Hepatitis C Antibody Negative Negative Assessment Acute kidney injury likely in the setting of hepatorenal syndrome can not exclude acute tubular necrosis CKD unspecified baseline is unknown Nonalcoholic cirrhosis With ascites Metabolic acidosis obtain baseline renal function from PCP. Dr. Parikh per start sodium bicarbonate IV albumin currently on midodrine and aldactone s/p paracentesis and has GI f/u will require outpatient f/u as well Plan discussed with: Patient ANATOLY SHERMAN MD Sep 05, 2024 11:06
[2024-09-05] MEDS: ALBUMIN 25% 100 ML IV SCH (12:36)
[2024-09-05] MEDS: SODIUM BICARBONATE 650 MG TAB PO SCH (13:29)
[2024-09-05] MEDS: DOCUSATE SOD 100 MG CAP PO PRN (13:29)
[2024-09-05 14:07] LABS: Protein, Body Fluid 2.4 g/dL (.)
--- NOTE | 2024-09-05 17:39 | DVHPN2 ---
Subjective Update 09/05 patient was here for abdominal pain presentation. Differential for admission includes gastroenteritis versus pancreatitis versus SBP. Patient vomiting today has high-grade constipation but passing gas. Patient is on ceftriaxone for possible SBP. Paracentesis tap done for diagnostic and appears to be negative for SBP. Patient being continued on monitoring, Lasix, Aldactone,. Nephrology following up today (started sodium bicarb, IV albumin, monitoring, Aldactone). GI following up for Vang (hepatitis panel, liver ultrasound, ammonia, DEQUAN, PT INR, ordered).. Exam largely unremarkable, bibasilar rales from likely atelectasis, mildly distended abdomen, low concern for worsening ascites. Appears close to euvolemia on exam. Keep patient on full liquid diet as tolerated, antiemetics,. Continue primary care team's plan and keep close follow up. Reviewed: H&P Changes from previous H/P or p: No Changes General: Per HPI Objective Vitals Vital Signs Date Time Temp Pulse Resp B/P (MAP) Pulse Ox O2 Delivery O2 Flow Rate FiO2 09/05/24 09:49 108/52 09/05/24 08:00 82 18 95 Room Air* 0 21 09/05/24 05:37 97.7 97.7 Intake/Output Intake and Output 09/05/24 07:00 Intake Total 890 ml Output Total 800 ml Balance 90 ml Intake Oral 890 ml Output Urine Total 800 ml Exam AOx4 PERLLA MMM clear breath sounds s1 s2 irregular abdomen mildly distended trace le edema normal HEEL SC[employer]ER Medications Current Medications Medications Dose Ordered Sig/Kaylee Route Start Time Stop Time Status Last Admin Dose Admin Ondansetron HCl 4 mg Q4HP PRN IV 09/04/24 05:30 Amiodarone HCl 200 mg BID PO 09/04/24 10:00 09/05/24 09:48 200 MG Furosemide 40 mg DAILY PO 09/04/24 10:00 09/05/24 09:49 40 MG Levothyroxine Sodium 112 mcg QAM PO 09/04/24 07:00 09/05/24 06:10 112 MCG Famotidine 40 mg DAILY PO 09/04/24 10:00 09/05/24 09:48 40 MG Spironolactone 100 mg DAILY PO 09/04/24 10:00 09/05/24 09:48 100 MG Ceftriaxone Sodium/Dextrose 50 ml @ 50 mls/hr DAILY IV 09/04/24 05:30 09/05/24 09:45 50 MLS/HR Midodrine 10 mg TID@0600,1200,1800 PO 09/04/24 12:00 09/05/24 12:36 10 MG Apixaban 5 mg BID PO 09/04/24 22:00 09/05/24 09:49 5 MG Sodium Bicarbonate 650 mg TID PO 09/05/24 14:00 09/05/24 13:29 650 MG Albumin Human 100 ml @ 100 mls/hr Q8H IV 09/05/24 11:00 09/06/24 03:59 09/05/24 12:36 100 MLS/HR Docusate Sodium 100 mg DAILYPRN PRN PO 09/05/24 12:30 09/05/24 13:29 100 MG Laboratory Results Laboratory Tests 09/05/24 05:52 Chemistry Test 09/05/24 05:52 Calcium Level 8.3 mg/dL (8.7-10.4) L Magnesium Level 2.6 mg/dL (1.6-2.6) Phosphorus Level 4.4 mg/dL (2.4-5.1) Urinalysis Test 09/05/24 05:22 Urine Color Light-yellow (Yellow) Urine Clarity Clear (Clear) Urine pH 5.5 (5.0-9.0) Urine Specific [place] 1.014 (1.001-1.035) Urine Protein Trace (Negative) H Urine Ketones Negative (Negative) Urine Blood 2+ /uL (Negative) H Urine Nitrite Negative (Negative) Urine Bilirubin Negative (Negative) Urine Urobilinogen Normal mg/dL (Negative) Urine Leukocyte Esterase Trace /uL (Negative) Urine RBC 17 /hpf (0 - 4) Urine Microscopic WBC 11 /HPF (0-5) H Urine Squamous Epithelial Cells None seen /hpf (<5) Urine Bacteria Few /hpf (None Seen) H Urine Hyaline Casts Few /lpf (0 - 2) Urine Granular Casts Few /lpf (0) Urine Mucus Few (None Seen) Urine Yeast (Budding) Occasional /hpf (None Urine Sodium 52 mmol/L (40-220) Urine Glucose Normal mg/dL (Normal) Microbiology Microbiology Date/Time Source Procedure Growth Status 09/04/24 14:45 Ascities Fluid Gram Stain - Final Resulted 09/04/24 14:45 Ascities Fluid Body Fluid Culture - Preliminary Resulted Labs and/or images reviewed: Labs reviewed by me, Image(s) reviewed by me Assessment/Plan Assessment/Plan 09/05 patient was here for abdominal pain presentation. Differential for admission includes gastroenteritis versus pancreatitis versus SBP. Patient vomiting today has high-grade constipation but passing gas. Patient is on ceftriaxone for possible SBP. Paracentesis tap done for diagnostic and appears to be negative for SBP. Patient being continued on monitoring, Lasix, Aldactone,. Nephrology following up today (started sodium bicarb, IV albumin, monitoring, Aldactone). GI following up for Vang (hepatitis panel, liver ultrasound, ammonia, DEQUAN, PT INR, ordered).. Exam largely unremarkable, bibasilar rales from likely atelectasis, mildly distended abdomen, low concern for worsening ascites. Appears close to euvolemia on exam. Keep patient on full liquid diet as tolerated, antiemetics,. Continue primary care team's plan and keep close follow up. 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
--- NOTE | 2024-09-05 17:53 | DVHPN2 ---
Progress Note - Dictate Date Seen: Sep 05, 2024 Medical Necessity Reason Pt with a Central, PICC or Fol: No Subjective No new complaints Patient is resting comfortably Patient stated that she follows with me in my office Unknown etiology of liver cirrhosis, remote history of alcohol intake in her youth Ferritin is normal, DEQUAN negative, hepatitis profile negative Patient is S/P paracentesis yesterday with 1 L of fluid being removed ascitic fluid analysis does not show evidence of SBP and likely a transudate vital signs Vital Sign Date Time Temp Pulse Resp B/P (MAP) Pulse Ox O2 Delivery O2 Flow Rate FiO2 09/05/24 09:49 108/52 09/05/24 08:00 82 18 95 Room Air* 0 21 09/05/24 05:37 97.7 97.7 Total Intake and Output 09/04/24 09/04/24 09/05/24 15:00 23:00 07:00 Intake Total 740 ml 150 ml Output Total 500 ml 300 ml Balance 240 ml -150 ml medications Current Medications Medications Dose Ordered Sig/Kaylee Route Start Time Stop Time Status Last Admin Dose Admin Ondansetron HCl 4 mg Q4HP PRN IV 09/04/24 05:30 Amiodarone HCl 200 mg BID PO 09/04/24 10:00 09/05/24 09:48 200 MG Furosemide 40 mg DAILY PO 09/04/24 10:00 09/05/24 09:49 40 MG Levothyroxine Sodium 112 mcg QAM PO 09/04/24 07:00 09/05/24 06:10 112 MCG Famotidine 40 mg DAILY PO 09/04/24 10:00 09/05/24 09:48 40 MG Spironolactone 100 mg DAILY PO 09/04/24 10:00 09/05/24 09:48 100 MG Ceftriaxone Sodium/Dextrose 50 ml @ 50 mls/hr DAILY IV 09/04/24 05:30 09/05/24 09:45 50 MLS/HR Midodrine 10 mg TID@0600,1200,1800 PO 09/04/24 12:00 09/05/24 12:36 10 MG Apixaban 5 mg BID PO 09/04/24 22:00 09/05/24 09:49 5 MG Sodium Bicarbonate 650 mg TID PO 09/05/24 14:00 09/05/24 13:29 650 MG Albumin Human 100 ml @ 100 mls/hr Q8H IV 09/05/24 11:00 09/06/24 03:59 09/05/24 12:36 100 MLS/HR Docusate Sodium 100 mg DAILYPRN PRN PO 09/05/24 12:30 09/05/24 13:29 100 MG objective AOx4 PERLLA MMM clear breath sounds s1 s2 irregular abdomen mildly distended trace le edema laboratory and microbiology Laboratory Tests 09/05/24 05:52 Test 09/05/24 05:52 Range/Units Serum Glucose 89 74-106 mg/dL RUQ USG IMPRESSION: Hepatic cirrhosis. Possible portal vein thrombus. Gallbladder sludge. Nonspecific gallbladder wall thickening which can be seen in setting of chronic liver disease. CT SCAN ABD PELVIS IMPRESSION: Hepatic cirrhosis and small volume ascites. Problems(with codes): (1) Acute renal injury (2) Dehydration (3) Nausea and vomiting (4) Paroxysmal A-fib (5) Liver cirrhosis (6) Ascites Prognosis Assessment plan Unclear etiology of cirrhosis possibly related to remote alcohol use suspected JON cirrhosis or cardiac cirrhosisand awaiting fluid albumin results Acute on chronic renal insufficiency Possibly related to diuretic use adjustment possible prerenal azotemia Leukocytosis; no evidence of SBP at this time History of AFib on anticoagulants S/P pacemaker meld score is 25 Points predictive of 19.6% three-month mortality Continue supportive care Continue IV antibiotics Patient is on oral amiodarone for a history of AFib and an anticoagulants Patient is on Lasix and spironolactone Famotidine 40 mg p.o. daily Pt also started on sodium bicarbonate IV albumin currently on midodrine Continue to monitor labs; check serum alpha fetoprotein IV fluid hydration Correct coagulopathy Outpatient follow up with me on a regular basis to continue to monitor her cirrhosis Plan discussed with: Patient GUDELIA TOMPKINS MD Sep 05, 2024 17:53
[2024-09-06] VITALS (7 sets, daily range): BP systolic 90–110; BP diastolic 53–64; PULSE 73–88; RESP 18–82; TEMP 97–98; O2SAT 18–97
[2024-09-06 07:15] LABS: Anion Gap 12 (5-15); BUN/Creatinine Ratio 24.9 (10.0-20.0); Calcium 9.2 mg/dL (8.7-10.4); Glucose 96 mg/dL (74-106); INR 2.11 (0.9-1.15); Potassium 4.4 mmol/L (3.5-5.1); Prothrombin Time 20.8 sec (9.3-11.8); Sodium 140 mmol/L (136-145); Total Protein 7.1 g/dL (5.7-8.2)
[2024-09-06 07:17] LABS: Basophils # (auto) 0 10 ^3/uL (0-0.2); Basophils % (auto) 0.4 % (0.0-2.0); Eosinophils # (auto) 0 10 ^3/uL (0-0.8); Eosinophils % (auto) 0.1 % (0.0-7.0); Hematocrit 40.4 % (36.0-46.0); Hemoglobin 13.7 g/dL (12.2-16.2); Lymphocytes # (auto) 0.8 10 ^3/uL (0.4-5.4); Lymphocytes % (auto) 7.7 % (10.0-50.0); Mean Corpuscular Hemoglobin 31.2 pg (28.0-32.0); Mean Corpuscular Hgb Conc. 33.9 g/dL (32.0-36.0); Mean Corpuscular Volume 91.9 fL (80.0-100.0); Monocytes # (auto) 0.5 10 ^3/uL (0-1.3); Monocytes % (auto) 4.9 % (0.0-12.0); Neutrophils # (auto) 9.1 10 ^3/uL (1.6-8.6); Neutrophils % (auto) 86.9 % (37.0-80.0); Nucleated Red Blood Cells % 0.1 %; Platelet Count (auto) 136 10^3/uL (140-450); Red Cell Distribution Width 19.1 % (11.8-14.3); White Blood Cell 10.5 10^3/uL (4.4-10.8)
[2024-09-06 07:20] LABS: Alanine Aminotransferase 160 U/L (7-40); Alkaline Phosphatase 133 U/L (46-116); Aspartate Aminotransferase 274 U/L (13-40); Bilirubin, Total 2.3 mg/dL (0.2-1.0); Blood Urea Nitrogen 67 mg/dL (9-23); Carbon Dioxide 19 mmol/L (20-31); Chloride 109 mmol/L (98-107)
--- NOTE | 2024-09-06 09:22 | DVHPN2 ---
Progress Note Date Seen: Sep 06, 2024 Medical Necessity Reason Pt with a Central, PICC or Fol: Yes The following are medically ne: Wiley Catheter Subjective Review of Systems: HEENT:Abnormal, GI:Abnormal Objective vital signs Vital Sign Date Time Temp Pulse Resp B/P (MAP) Pulse Ox O2 Delivery O2 Flow Rate FiO2 09/06/24 09:00 97.5 88 71 109/64 (79) 97 97.5 09/06/24 08:00 Room Air* 0 21 Total Intake and Output 09/05/24 09/05/24 09/06/24 15:00 23:00 07:00 Intake Total 300 ml 340 ml 500 ml Output Total 300 ml Balance 300 ml 340 ml 200 ml medications Current Medications Medications Dose Ordered Sig/Kaylee Route Start Time Stop Time Status Last Admin Dose Admin Ondansetron HCl 4 mg Q4HP PRN IV 09/04/24 05:30 Amiodarone HCl 200 mg BID PO 09/04/24 10:00 09/05/24 21:24 200 MG Furosemide 40 mg DAILY PO 09/04/24 10:00 09/05/24 09:49 40 MG Levothyroxine Sodium 112 mcg QAM PO 09/04/24 07:00 09/06/24 06:28 112 MCG Famotidine 40 mg DAILY PO 09/04/24 10:00 09/05/24 09:48 40 MG Spironolactone 100 mg DAILY PO 09/04/24 10:00 09/05/24 09:48 100 MG Ceftriaxone Sodium/Dextrose 50 ml @ 50 mls/hr DAILY IV 09/04/24 05:30 09/05/24 09:45 50 MLS/HR Midodrine 10 mg TID@0600,1200,1800 PO 09/04/24 12:00 09/06/24 06:27 10 MG Apixaban 5 mg BID PO 09/04/24 22:00 09/05/24 21:24 5 MG Sodium Bicarbonate 650 mg TID PO 09/05/24 14:00 09/06/24 06:27 650 MG Docusate Sodium 100 mg DAILYPRN PRN PO 09/05/24 12:30 09/06/24 01:44 100 MG Examination: GENERAL:Normal, CVS:Normal, ABDOMEN:Abnormal, SKIN:Abnormal laboratory and microbiology Laboratory Tests 09/06/24 06:26 Test 09/06/24 06:26 Range/Units Serum Glucose 96 74-106 mg/dL Microbiology Date/Time Source Procedure Growth Status 09/05/24 05:22 Voided Urine Urine Culture - Preliminary Resulted 09/04/24 14:45 Ascities Fluid Gram Stain - Final Resulted 09/04/24 14:45 Ascities Fluid Body Fluid Culture - Preliminary Resulted Problem List/Assessment/Plan Problem List/Assessment/Plan Acute kidney injury likely in the setting of hepatorenal syndrome can not exclude acute tubular necrosis CKD unspecified baseline is unknown Nonalcoholic cirrhosis With ascites Metabolic acidosis slight improvement in renal function obtain baseline renal function from PCP. Dr. Parikh per sodium bicarbonate IV albumin currently on midodrine and aldactone s/p paracentesis and has GI f/u will require outpatient f/u with nephrology Plan discussed with: Patient My Orders My Orders Orders - ANATOLY SHERMAN MD Procedure Category Date Status Time Sodium Bicarb Tab PHA 09/05/24 In Process 14:00 ANATOLY SHERMAN MD Sep 06, 2024 09:22
--- NOTE | 2024-09-06 12:37 | DVHPN2 ---
Progress Note - Dictate Date Seen: Sep 06, 2024 Medical Necessity Reason Pt with a Central, PICC or Fol: Yes The following are medically ne: Wiley Catheter Subjective No new complaints Patient is resting comfortably was at the bedside Patient is complaining of some constipation Patient stated that she follows with me in my office Unknown etiology of liver cirrhosis, remote history of alcohol intake in her youth Ferritin is normal, DEQUAN negative, hepatitis profile negative Patient is S/P paracentesis with 1 L of fluid being removed ascitic fluid analysis does not show evidence of SBP and likely a transudate vital signs Vital Sign Date Time Temp Pulse Resp B/P (MAP) Pulse Ox O2 Delivery O2 Flow Rate FiO2 09/06/24 09:45 103/59 09/06/24 09:00 97.5 88 71 97 97.5 09/06/24 08:00 Room Air* 0 21 Total Intake and Output 09/05/24 09/05/24 09/06/24 15:00 23:00 07:00 Intake Total 300 ml 340 ml 500 ml Output Total 300 ml Balance 300 ml 340 ml 200 ml medications Current Medications Medications Dose Ordered Sig/Kaylee Route Start Time Stop Time Status Last Admin Dose Admin Ondansetron HCl 4 mg Q4HP PRN IV 09/04/24 05:30 Amiodarone HCl 200 mg BID PO 09/04/24 10:00 09/06/24 09:44 200 MG Furosemide 40 mg DAILY PO 09/04/24 10:00 09/06/24 09:45 40 MG Levothyroxine Sodium 112 mcg QAM PO 09/04/24 07:00 09/06/24 06:28 112 MCG Famotidine 40 mg DAILY PO 09/04/24 10:00 09/06/24 09:44 40 MG Spironolactone 100 mg DAILY PO 09/04/24 10:00 09/06/24 09:43 100 MG Ceftriaxone Sodium/Dextrose 50 ml @ 50 mls/hr DAILY IV 09/04/24 05:30 09/06/24 09:43 50 MLS/HR Midodrine 10 mg TID@0600,1200,1800 PO 09/04/24 12:00 09/06/24 06:27 10 MG Apixaban 5 mg BID PO 09/04/24 22:00 09/06/24 09:44 5 MG Sodium Bicarbonate 650 mg TID PO 09/05/24 14:00 09/06/24 06:27 650 MG Docusate Sodium 100 mg DAILYPRN PRN PO 09/05/24 12:30 09/06/24 01:44 100 MG objective AOx4 PERLLA MMM clear breath sounds s1 s2 irregular abdomen mildly distended trace le edema laboratory and microbiology Laboratory Tests 09/06/24 06:26 Test 09/06/24 06:26 Range/Units Serum Glucose 96 74-106 mg/dL Problems(with codes): (1) Constipation (2) Paroxysmal A-fib (3) Liver cirrhosis (4) Acute renal injury (5) Ascites (6) Dehydration (7) Nausea and vomiting Prognosis Assessment plan Patient has mild persistent elevation in liver enzymes likely related to her cirrhosis Her renal function is improving Patient has developed some constipation likely due to diuretics and paracentesis Colace, MiraLax and one fleets enema I am going to hold her Eliquis at this time because of rising her PT to over 20 This patient is high-risk for bleeding because of underlying cirrhosis and if anticoagulation is required it has to be very low-dose Monitor labs and I will follow up patient with you She has wants to follow up in my office as an outpatient for ongoing management of her chronic liver disease Dietary Evaluation Review Comments: 1) Iniitiate NutriHep bid d/t poor appetite. Encourage optimal PO intake 2) Advance to hepatic renal standard diet when medically feasible, pending [employer] approval. 3) Follow-up with gastroenterology, hepatology, and nephrology 4) Continue to monitor I&O, labs, and skin integrity Expected Outcomes/Goals: 1) appetite and labs to improve 2) diet to advance 3) follow-up in 3-5 days Plan discussed with: Patient, Spouse GUDELIA TOMPKINS MD Sep 06, 2024 12:37
[2024-09-06] MEDS: FLEET ENEMA(ADULT) 135 ML PR ONE (13:50)
[2024-09-06] MEDS: POLYETHYLENE GLYCOL 17 GM PWDR PO ONE (13:50)
--- NOTE | 2024-09-06 14:48 | DVH ---
Date: 09/06/2024 12:13 PM Examination: XY KUB ABDOMEN SINGLE VIEW History: abdominal pain/constipation Comparison: CT 09/04/2024 TECHNIQUE: Frontal views of the abdomen was obtained. FINDINGS: Bowel gas pattern is unremarkable. The lung bases are unremarkable. No acute osseous abnormality identified. IMPRESSION: 1. Nonobstructive bowel gas pattern.
--- NOTE | 2024-09-06 18:40 | DVHPN2 ---
Subjective Update 09/05 patient was here for abdominal pain presentation. Differential for admission includes gastroenteritis versus pancreatitis versus SBP. Patient vomiting today has high-grade constipation but passing gas. Patient is on ceftriaxone for possible SBP. Paracentesis tap done for diagnostic and appears to be negative for SBP. Patient being continued on monitoring, Lasix, Aldactone,. Nephrology following up today (started sodium bicarb, IV albumin, monitoring, Aldactone). GI following up for Vang (hepatitis panel, liver ultrasound, ammonia, DEQUAN, PT INR, ordered).. Exam largely unremarkable, bibasilar rales from likely atelectasis, mildly distended abdomen, low concern for worsening ascites. Appears close to euvolemia on exam. Keep patient on full liquid diet as tolerated, antiemetics,. Continue primary care team's plan and keep close follow up. 09/06 Patient continues to have abdominal pain and nausea and vomiting. SBP ruled out. She was terrible constipation and GI following. INR rising and GI concern for bleed in his stopping Eliquis, we will keep SCDs for prophylaxis. G I is starting bowel regimen with Colace, MiraLax, Fleet enemas. Nephrology following and patient was on sodium bicarb with IV albumin, midodrine and Aldactone. We will get KUB today to make sure to rule out ileus. Patient bowel sounds are absent and has tenderness epigastrium. KUB is done unconcerning with normal bowel gas pattern. We will continue to do give clear liquid diet and assess tolerance. If patient continues to have nausea/vomiting and we will need PPN parenteral. Primary care team can consider Gastrografin swallow tomorrow if continues to nausea and vomiting. Counseled patient to take antiemetics Reviewed: H&P Changes from previous H/P or p: No Changes General: Per HPI Objective Vitals Vital Signs Date Time Temp Pulse Resp B/P (MAP) Pulse Ox O2 Delivery O2 Flow Rate FiO2 09/06/24 17:00 97.5 82 82 110/53 (72) 18 97.5 09/06/24 08:00 Room Air* 0 21 Intake/Output Intake and Output 09/06/24 07:00 Intake Total 1140 ml Output Total 300 ml Balance 840 ml Intake Oral 790 ml IV Total 350 ml Output Urine Total 300 ml # Voids 1 # Bowel Movements 1 Exam AOx4 PERLLA MMM clear breath sounds s1 s2 irregular abdomen mildly distended trace le edema normal [employer] Medications Current Medications Medications Dose Ordered Sig/Kaylee Route Start Time Stop Time Status Last Admin Dose Admin Ondansetron HCl 4 mg Q4HP PRN IV 09/04/24 05:30 Amiodarone HCl 200 mg BID PO 09/04/24 10:00 09/06/24 09:44 200 MG Furosemide 40 mg DAILY PO 09/04/24 10:00 09/06/24 09:45 40 MG Levothyroxine Sodium 112 mcg QAM PO 09/04/24 07:00 09/06/24 06:28 112 MCG Famotidine 40 mg DAILY PO 09/04/24 10:00 09/06/24 09:44 40 MG Spironolactone 100 mg DAILY PO 09/04/24 10:00 09/06/24 09:43 100 MG Ceftriaxone Sodium/Dextrose 50 ml @ 50 mls/hr DAILY IV 09/04/24 05:30 09/06/24 09:43 50 MLS/HR Midodrine 10 mg TID@0600,1200,1800 PO 09/04/24 12:00 09/06/24 17:25 10 MG Sodium Bicarbonate 650 mg TID PO 09/05/24 14:00 09/06/24 13:49 650 MG Docusate Sodium 100 mg DAILY PO 09/07/24 10:00 Laboratory Results Laboratory Tests 09/06/24 06:26 Chemistry Test 09/06/24 06:26 Albumin 4.0 g/dL (3.2-4.8) Calcium Level 9.2 mg/dL (8.7-10.4) Total Protein 7.1 g/dL (5.7-8.2) Coagulation Test 09/06/24 06:26 Prothrombin Time 20.8 sec (9.3-11.8) H Prothrombin Time INR 2.11 (0.9-1.15) H LFT Test 09/06/24 06:26 Alanine Aminotransferase (ALT) 160 U/L (7-40) H Alkaline Phosphatase 133 U/L (46-116) H Aspartate Amino Transferase (AST) 274 U/L (13-40) H Total Bilirubin 2.3 mg/dL (0.2-1.0) H Urinalysis Test 09/05/24 05:22 Urine Color Light-yellow (Yellow) Urine Clarity Clear (Clear) Urine pH 5.5 (5.0-9.0) Urine Specific [place] 1.014 (1.001-1.035) Urine Protein Trace (Negative) H Urine Ketones Negative (Negative) Urine Blood 2+ /uL (Negative) H Urine Nitrite Negative (Negative) Urine Bilirubin Negative (Negative) Urine Urobilinogen Normal mg/dL (Negative) Urine Leukocyte Esterase Trace /uL (Negative) Urine RBC 17 /hpf (0 - 4) Urine Microscopic WBC 11 /HPF (0-5) H Urine Squamous Epithelial Cells None seen /hpf (<5) Urine Bacteria Few /hpf (None Seen) H Urine Hyaline Casts Few /lpf (0 - 2) Urine Granular Casts Few /lpf (0) Urine Mucus Few (None Seen) Urine Yeast (Budding) Occasional /hpf (None Urine Sodium 52 mmol/L (40-220) Urine Glucose Normal mg/dL (Normal) Microbiology Microbiology Date/Time Source Procedure Growth Status 09/05/24 05:22 Voided Urine Urine Culture - Preliminary Resulted 09/04/24 14:45 Ascities Fluid Gram Stain - Final Resulted 09/04/24 14:45 Ascities Fluid Body Fluid Culture - Preliminary Resulted Labs and/or images reviewed: Labs reviewed by me, Image(s) reviewed by me Assessment/Plan Assessment/Plan 09/06 Patient continues to have abdominal pain and nausea and vomiting. SBP ruled out. She was terrible constipation and GI following. INR rising and GI concern for bleed in his stopping Eliquis, we will keep SCDs for prophylaxis. G I is starting bowel regimen with Colace, MiraLax, Fleet enemas. Nephrology following and patient was on sodium bicarb with IV albumin, midodrine and Aldactone. We will get KUB today to make sure to rule out ileus. Patient bowel sounds are absent and has tenderness epigastrium. KUB is done unconcerning with normal bowel gas pattern. We will continue to do give clear liquid diet and assess tolerance. If patient continues to have nausea/vomiting and we will need PPN parenteral. Primary care team can consider Gastrografin swallow tomorrow if continues to nausea and vomiting. 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 on CKD start ceftriaxone tapped 09/04 - r/o SBP POCUS abd midodrine lasix aldactone nephro consult pain mgmt resume home meds and eliquis Eliquis hold Bowel regimen-Colace, MiraLax, Fleet enemas full code diet renal dvt ppx on eliquis Plan discussed with: Patient, Spouse My Orders Orders - JOE MARTINEZ MD Procedure Category Date Status Time Kub Abdomen Single XY 09/06/24 Resulted View 11:18 Pt Request For Service PT 09/06/24 Logged 17:20 Date of Service: Sep 06, 2024 Billing Provider: JOE MARTINEZ MD Common Visit Codes: [id number] INP/OBS CARE(HIGH) JOE MARTINEZ MD Sep 06, 2024 18:40
[2024-09-07] VITALS (7 sets, daily range): BP systolic 93–109; BP diastolic 55–65; PULSE 86–97; RESP 15–18; TEMP 97.4–97.8; O2SAT 87–97
[2024-09-07 06:20] LABS: Basophils # (auto) 0 10 ^3/uL (0-0.2); Basophils % (auto) 0.1 % (0.0-2.0); Eosinophils # (auto) 0 10 ^3/uL (0-0.8); Hematocrit 44.8 % (36.0-46.0); Lymphocytes # (auto) 0.9 10 ^3/uL (0.4-5.4); Lymphocytes % (auto) 6.9 % (10.0-50.0); Mean Corpuscular Hgb Conc. 33.4 g/dL (32.0-36.0); Mean Corpuscular Volume 92.6 fL (80.0-100.0); Monocytes # (auto) 0.5 10 ^3/uL (0-1.3); Monocytes % (auto) 3.7 % (0.0-12.0); Neutrophils # (auto) 11.9 10 ^3/uL (1.6-8.6); Neutrophils % (auto) 89.3 % (37.0-80.0); Platelet Count (auto) 145 10^3/uL (140-450); Red Blood Cells 4.83 10^6/uL (4.0-5.20); Red Cell Distribution Width 19.7 % (11.8-14.3); White Blood Cell 13.3 10^3/uL (4.4-10.8)
[2024-09-07 06:40] LABS: Albumin 3.4 g/dL (3.2-4.8); Anion Gap 10 (5-15); BUN/Creatinine Ratio 23.6 (10.0-20.0); Calcium 8.8 mg/dL (8.7-10.4); Glucose 100 mg/dL (74-106); Potassium 4.3 mmol/L (3.5-5.1); Sodium 138 mmol/L (136-145); Total Protein 6.7 g/dL (5.7-8.2)
[2024-09-07 06:42] LABS: Alanine Aminotransferase 190 U/L (7-40); Aspartate Aminotransferase 344 U/L (13-40); Blood Urea Nitrogen 60 mg/dL (9-23); Carbon Dioxide 19 mmol/L (20-31); Chloride 109 mmol/L (98-107); INR 1.98 (0.9-1.15); Prothrombin Time 19.6 sec (9.3-11.8)
[2024-09-07 07:02] LABS: Alkaline Phosphatase 132 U/L (46-116)
[2024-09-07] MEDS: DOCUSATE SOD 100 MG CAP PO SCH (10:57)
--- NOTE | 2024-09-07 15:42 | DVHPNRES ---
Progress Note Date Seen: Sep 07, 2024 Resident Creating Document: GARRETT DEMPSEY RESIDENT Medical Necessity Reason Pt with a Central, PICC or Fol: Yes The following are medically ne: Wiley Catheter Subjective Review of Systems Patient seen and examined at the bedside. Patient reported no new complaints, reported improvement in her symptoms since admission. Patient stated that she follows with Dr Guerrero in office Unknown etiology of liver cirrhosis, remote history of alcohol intake in her youth Ferritin is normal, DEQUAN negative, hepatitis profile negative Patient is S/P paracentesis with 1 L of fluid being removed Ascitic fluid analysis does not show evidence of SBP and likely a transudate Objective vital signs Vital Sign Date Time Temp Pulse Resp B/P (MAP) Pulse Ox O2 Delivery O2 Flow Rate FiO2 09/07/24 13:00 97.6 94 18 98/59 (72) 95 97.6 09/07/24 08:00 Room Air* 0 21 Total Intake and Output 09/06/24 09/06/24 09/07/24 14:59 22:59 06:59 Intake Total 200 ml 175 ml 600 ml Output Total 400 ml Balance 200 ml 175 ml 200 ml medications Current Medications Medications Dose Ordered Sig/Kaylee Route Start Time Stop Time Status Last Admin Dose Admin Ondansetron HCl 4 mg Q4HP PRN IV 09/04/24 05:30 Amiodarone HCl 200 mg BID PO 09/04/24 10:00 09/07/24 10:58 200 MG Furosemide 40 mg DAILY PO 09/04/24 10:00 09/07/24 10:58 40 MG Levothyroxine Sodium 112 mcg QAM PO 09/04/24 07:00 09/07/24 06:12 112 MCG Famotidine 40 mg DAILY PO 09/04/24 10:00 09/07/24 10:58 40 MG Spironolactone 100 mg DAILY PO 09/04/24 10:00 09/07/24 10:57 100 MG Ceftriaxone Sodium/Dextrose 50 ml @ 50 mls/hr DAILY IV 09/04/24 05:30 09/07/24 10:57 50 MLS/HR Midodrine 10 mg TID@0600,1200,1800 PO 09/04/24 12:00 09/07/24 13:57 10 MG Sodium Bicarbonate 650 mg TID PO 09/05/24 14:00 09/07/24 13:57 650 MG Docusate Sodium 100 mg DAILY PO 09/07/24 10:00 09/07/24 10:57 100 MG Examination Pt is lying on bed General Appearance: Alert, Oriented X3, Cooperative, Not in acute distress HEENT: Atraumatic, Mucous membranes moist/pink Respiratory: Clear to auscultation, Normal air movement, No added sounds Cardiovascular: Regular rate, Normal S1, Normal S2, No murmurs Abdominal: Active bowel sounds, Soft, no distention, no tenderness Extremities: No edema, Normal pulses, No tenderness/swelling Skin: No Significant rash, except past surgical scars Neuro: Normal speech, sensorimotor deficits none Psych/Mental Status: Mental status NL, Mood NL Nurse was there as sharperone during examination laboratory and microbiology Laboratory Tests 09/07/24 05:32 Test 09/07/24 05:32 Range/Units Serum Glucose 100 74-106 mg/dL Microbiology Date/Time Source Procedure Growth Status 09/05/24 05:22 Voided Urine Urine Culture - Final Complete 09/04/24 14:45 Ascities Fluid Gram Stain - Final Resulted 09/04/24 14:45 Ascities Fluid Body Fluid Culture - Preliminary Resulted Labs and/or images reviewed: Labs reviewed by me, Image(s) reviewed by me Problem List/Assessment/Plan Problem List/Assessment/Plan (1) Constipation (2) Paroxysmal A-fib (3) Liver cirrhosis (4) Acute renal injury (5) Ascites (6) Dehydration (7) Nausea and vomiting Assessment plan Patient has mild persistent elevation in liver enzymes likely related to her cirrhosis Her renal function is improving Patient has developed some constipation likely due to diuretics and paracentesis Colace, MiraLax Hold her Eliquis at this time because of rising her PT to over 20 This patient is high-risk for bleeding because of underlying cirrhosis and if anticoagulation is required it has to be very low-dose Monitor labs and will follow up patient Okay to discharge She has wants to follow up in office as an outpatient for ongoing management of her chronic liver disease Thank you so much for the opportunity to consult on your patient. GI team will follw the patient . Reconsult if needed. Case an action plan discussed with Dr. Janet Guerrero. Complex care planning needed total 49 minutes of detailed discussion. Plan discussed with: Patient Dietary Evaluation Review Comments: 1) Iniitiate NutriHep bid d/t poor appetite. Encourage optimal PO intake 2) Advance to hepatic renal standard diet when medically feasible, pending RN OR LPN approval. 3) Follow-up with gastroenterology, hepatology, and nephrology 4) Continue to monitor I&O, labs, and skin integrity Expected Outcomes/Goals: 1) appetite and labs to improve 2) diet to advance 3) follow-up in 3-5 days GARRETT DEMPSEY RESIDENT Sep 07, 2024 15:42
--- NOTE | 2024-09-07 18:53 | DVHPN2 ---
Progress Note Date Seen: Sep 07, 2024 Medical Necessity Reason Pt with a Central, PICC or Fol: Yes The following are medically ne: Wiley Catheter Subjective Patient reports: No new complaints, Feels better Objective vital signs Vital Sign Date Time Temp Pulse Resp B/P (MAP) Pulse Ox O2 Delivery O2 Flow Rate FiO2 09/07/24 17:00 97.6 97 16 93/55 (68) 97 97.6 09/07/24 08:00 Room Air* 0 21 Total Intake and Output 09/06/24 09/06/24 09/07/24 15:00 23:00 07:00 Intake Total 200 ml 175 ml 600 ml Output Total 400 ml Balance 200 ml 175 ml 200 ml medications Current Medications Medications Dose Ordered Sig/Kayele Route Start Time Stop Time Status Last Admin Dose Admin Ondansetron HCl 4 mg Q4HP PRN IV 09/04/24 05:30 Amiodarone HCl 200 mg BID PO 09/04/24 10:00 09/07/24 10:58 200 MG Furosemide 40 mg DAILY PO 09/04/24 10:00 09/07/24 10:58 40 MG Levothyroxine Sodium 112 mcg QAM PO 09/04/24 07:00 09/07/24 06:12 112 MCG Famotidine 40 mg DAILY PO 09/04/24 10:00 09/07/24 10:58 40 MG Spironolactone 100 mg DAILY PO 09/04/24 10:00 09/07/24 10:57 100 MG Ceftriaxone Sodium/Dextrose 50 ml @ 50 mls/hr DAILY IV 09/04/24 05:30 09/07/24 10:57 50 MLS/HR Midodrine 10 mg TID@0600,1200,1800 PO 09/04/24 12:00 09/07/24 17:01 10 MG Sodium Bicarbonate 650 mg TID PO 09/05/24 14:00 09/07/24 13:57 650 MG Docusate Sodium 100 mg DAILY PO 09/07/24 10:00 09/07/24 10:57 100 MG Examination: GENERAL:Normal, HEENT:Normal, NECK:Normal, LUNGS:Normal, CVS:Normal, ABDOMEN:Abnormal, MSK:Normal, SKIN:Normal, NEURO:Normal, :Normal laboratory and microbiology Laboratory Tests 09/07/24 05:32 Test 09/07/24 05:32 Range/Units Serum Glucose 100 74-106 mg/dL Microbiology Date/Time Source Procedure Growth Status 09/05/24 05:22 Voided Urine Urine Culture - Final Complete 09/04/24 14:45 Ascities Fluid Gram Stain - Final Resulted 09/04/24 14:45 Ascities Fluid Body Fluid Culture - Preliminary Resulted Problem List/Assessment/Plan Problem List/Assessment/Plan Acute kidney injury likely in the setting of hepatorenal syndrome can not exclude acute tubular necrosis CKD 4 Nonalcoholic cirrhosis With ascites Metabolic acidosis Recommendations Slightly better Renal function Nonoliguric We will follow renal function closely Plan discussed with: Patient, Spouse My Orders My Orders Orders - MARIANELA NEGRETE MD Procedure Category Date Status Time Renal DIET 09/07/24 Transmitted Standard(2gna,3gk,Lopho) Lunch Dietary Evaluation Review Comments: 1) Iniitiate NutriHep bid d/t poor appetite. Encourage optimal PO intake 2) Advance to hepatic renal standard diet when medically feasible, pending [employer] approval. 3) Follow-up with gastroenterology, hepatology, and nephrology 4) Continue to monitor I&O, labs, and skin integrity Expected Outcomes/Goals: 1) appetite and labs to improve 2) diet to advance 3) follow-up in 3-5 days MARIANELA NEGRETE MD Sep 07, 2024 18:53
--- NOTE | 2024-09-07 20:44 | DVHPN2 ---
Assessment/Plan Assessment/Plan Progress note 83 year old female with JON cirrhosis, afib on eliquis, sick sinus on PPM admitted for nause and vomiting. 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 on CKD start ceftriaxone tap if pocket available POCUS abd midodrine lasix aldactone nephro consult pain mgmt resume home meds and eliquis full code diet renal dvt ppx on eliquis Plan discussed with: Patient, Spouse My Orders Orders - NICOL BRIONES MD Procedure Category Date Status Time Basic Metabolic Panel LAB 09/08/24 Verified 04:00 Complete Blood Count LAB 09/08/24 Verified 04:00 Date of Service: Sep 07, 2024 Billing Provider: NICOL BRIONES MD Common Visit Codes: [id number] INP/OBS CARE(HIGH) NICOL BRIONES MD Sep 07, 2024 20:44
[2024-09-08] VITALS (8 sets, daily range): BP systolic 97–115; BP diastolic 58–68; PULSE 83–98; RESP 15–19; TEMP 97.2–98.1; O2SAT 95–97
[2024-09-08 05:30] LABS: Basophils # (auto) 0 10 ^3/uL (0-0.2); Basophils % (auto) 0.2 % (0.0-2.0); Eosinophils # (auto) 0 10 ^3/uL (0-0.8); Hematocrit 42.7 % (36.0-46.0); Hemoglobin 14.6 g/dL (12.2-16.2); Lymphocytes # (auto) 1.3 10 ^3/uL (0.4-5.4); Lymphocytes % (auto) 9.6 % (10.0-50.0); Mean Corpuscular Hemoglobin 31.4 pg (28.0-32.0); Mean Corpuscular Hgb Conc. 34.3 g/dL (32.0-36.0); Mean Corpuscular Volume 91.7 fL (80.0-100.0); Monocytes # (auto) 0.7 10 ^3/uL (0-1.3); Monocytes % (auto) 4.9 % (0.0-12.0); Neutrophils # (auto) 11.5 10 ^3/uL (1.6-8.6); Neutrophils % (auto) 85.3 % (37.0-80.0); Nucleated Red Blood Cells % 0.1 %; Platelet Count (auto) 128 10^3/uL (140-450); Red Blood Cells 4.66 10^6/uL (4.0-5.20); Red Cell Distribution Width 19.6 % (11.8-14.3); White Blood Cell 13.4 10^3/uL (4.4-10.8)
[2024-09-08 05:50] LABS: Chloride 106 mmol/L (98-107); Potassium 4.6 mmol/L (3.5-5.1)
[2024-09-08 05:51] LABS: Anion Gap 10 (5-15)
[2024-09-08 05:54] LABS: Calcium 8.7 mg/dL (8.7-10.4); Carbon Dioxide 19 mmol/L (20-31); Sodium 135 mmol/L (136-145)
[2024-09-08 05:56] LABS: BUN/Creatinine Ratio 23.2 (10.0-20.0); Glucose 102 mg/dL (74-106)
[2024-09-08 06:07] LABS: Blood Urea Nitrogen 68 mg/dL (9-23)
--- NOTE | 2024-09-08 14:06 | DVHPN2 ---
Progress Note Date Seen: Sep 08, 2024 Resident Creating Document: GARRETT DEMPSEY RESIDENT Medical Necessity Reason Pt with a Central, PICC or Fol: Yes The following are medically ne: Wiley Catheter Subjective Review of Systems Patient seen and examined at the bedside. Patient reported improvement in her symptoms since admission. Patient reported no bowel movement since yesterday, enema and MiraLax. Objective vital signs Vital Sign Date Time Temp Pulse Resp B/P (MAP) Pulse Ox O2 Delivery O2 Flow Rate FiO2 09/08/24 10:13 107/62 09/08/24 09:00 97.6 98 19 97 97.6 09/08/24 08:00 Room Air* 0 21 Total Intake and Output 09/07/24 09/07/24 09/08/24 14:59 22:59 06:59 Intake Total 50 ml 600 ml 100 ml Output Total 500 ml 300 ml Balance 50 ml 100 ml -200 ml medications Current Medications Medications Dose Ordered Sig/Kaylee Route Start Time Stop Time Status Last Admin Dose Admin Ondansetron HCl 4 mg Q4HP PRN IV 09/04/24 05:30 Amiodarone HCl 200 mg BID PO 09/04/24 10:00 09/08/24 10:12 200 MG Furosemide 40 mg DAILY PO 09/04/24 10:00 09/08/24 10:13 40 MG Levothyroxine Sodium 112 mcg QAM PO 09/04/24 07:00 09/08/24 05:39 112 MCG Famotidine 40 mg DAILY PO 09/04/24 10:00 09/08/24 10:13 40 MG Spironolactone 100 mg DAILY PO 09/04/24 10:00 09/08/24 10:12 100 MG Ceftriaxone Sodium/Dextrose 50 ml @ 50 mls/hr DAILY IV 09/04/24 05:30 09/08/24 10:11 50 MLS/HR Midodrine 10 mg TID@0600,1200,1800 PO 09/04/24 12:00 09/08/24 12:29 10 MG Sodium Bicarbonate 650 mg TID PO 09/05/24 14:00 09/08/24 05:39 650 MG Docusate Sodium 100 mg DAILY PO 09/07/24 10:00 09/08/24 10:12 100 MG Examination Pt is lying on bed General Appearance: Alert, Oriented X3, Cooperative, Not in acute distress HEENT: Atraumatic, Mucous membranes moist/pink Respiratory: Clear to auscultation, Normal air movement, No added sounds Cardiovascular: Regular rate, Normal S1, Normal S2, No murmurs Abdominal: Active bowel sounds, Soft, no distention, no tenderness Extremities: No edema, Normal pulses, No tenderness/swelling Skin: No Significant rash, except past surgical scars Neuro: Normal speech, sensorimotor deficits none Psych/Mental Status: Mental status NL, Mood NL Nurse was there as sharperone during examination laboratory and microbiology Laboratory Tests 09/08/24 05:00 Test 09/08/24 05:00 Range/Units Serum Glucose 102 74-106 mg/dL Microbiology Date/Time Source Procedure Growth Status 09/05/24 05:22 Voided Urine Urine Culture - Final Complete 09/04/24 14:45 Ascities Fluid Gram Stain - Final Resulted 09/04/24 14:45 Ascities Fluid Body Fluid Culture - Preliminary Resulted Labs and/or images reviewed: Labs reviewed by me, Image(s) reviewed by me Problem List/Assessment/Plan Problem List/Assessment/Plan (1) Constipation (2) Paroxysmal A-fib (3) Liver cirrhosis (4) Acute renal injury (5) Ascites (6) Dehydration (7) Nausea and vomiting Assessment plan Enema today Her renal function is improving Patient has developed some constipation likely due to diuretics and paracentesis Colace, MiraLax Hold her Eliquis at this time because of rising her PT to over 20 This patient is high-risk for bleeding because of underlying cirrhosis and if anticoagulation is required it has to be very low-dose Monitor labs and will follow up patient Okay to discharge She has wants to follow up in office as an outpatient for ongoing management of her chronic liver disease Thank you so much for the opportunity to consult on your patient. GI team will follw the patient . Reconsult if needed. Case an action plan discussed with Dr. Janet Guerrero. Complex care planning needed total 49 minutes of detailed discussion. Plan discussed with: Patient My Orders My Orders Orders - GARRETT DEMPSEY RESIDENT Procedure Category Date Status Time Tap Water Enema ORDERS 09/08/24 Verified 14:03 Polyethylene Glycol PHA 09/09/24 Verified 17g Powder (Miralax 10:00 Polyethylene Glycol PHA 09/08/24 Verified 17g Powder (Miralax 14:15 Dietary Evaluation Review Comments: 1) Iniitiate NutriHep bid d/t poor appetite. Encourage optimal PO intake 2) Advance to hepatic renal standard diet when medically feasible, pending HOT REPAIRMAN approval. 3) Follow-up with gastroenterology, hepatology, and nephrology 4) Continue to monitor I&O, labs, and skin integrity Expected Outcomes/Goals: 1) appetite and labs to improve 2) diet to advance 3) follow-up in 3-5 days GARRETT DEMPSEY RESIDENT Sep 08, 2024 14:06
[2024-09-08] MEDS: POLYETHYLENE GLYCOL 17 GM PWDR PO ONE (14:37)
--- NOTE | 2024-09-08 15:32 | DVHPN2 ---
Assessment/Plan Assessment/Plan Progress note 83 year old female with JON cirrhosis, afib on eliquis, sick sinus on PPM admitted for nause and vomiting. seen today during rounds, feels weaker today, discussed with patient re dispo planning, want to consider hospice placement instead. 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 on CKD start ceftriaxone tap if pocket available POCUS abd midodrine lasix aldactone nephro consult pain mgmt resume home meds and eliquis ss consult full code diet renal dvt ppx on eliquis Plan discussed with: Patient, Spouse Date of Service: Sep 08, 2024 Billing Provider: NICOL BRIONES MD Common Visit Codes: [id number] INP/OBS CARE(MOD) NICOL BRIONES MD Sep 08, 2024 15:32
--- NOTE | 2024-09-08 18:44 | DVHPN2 ---
Progress Note Date Seen: Sep 08, 2024 Medical Necessity Reason Pt with a Central, PICC or Fol: Yes The following are medically ne: Wiley Catheter Subjective Patient reports: No new complaints Review of Systems: Deferred Objective vital signs Vital Sign Date Time Temp Pulse Resp B/P (MAP) Pulse Ox O2 Delivery O2 Flow Rate FiO2 09/08/24 17:00 97.5 86 17 108/58 (75) 97 97.5 09/08/24 08:00 Room Air* 0 21 Total Intake and Output 09/07/24 09/07/24 09/08/24 15:00 23:00 07:00 Intake Total 50 ml 600 ml 100 ml Output Total 500 ml 300 ml Balance 50 ml 100 ml -200 ml medications Current Medications Medications Dose Ordered Sig/Kaylee Route Start Time Stop Time Status Last Admin Dose Admin Ondansetron HCl 4 mg Q4HP PRN IV 09/04/24 05:30 Amiodarone HCl 200 mg BID PO 09/04/24 10:00 09/08/24 10:12 200 MG Furosemide 40 mg DAILY PO 09/04/24 10:00 09/08/24 10:13 40 MG Levothyroxine Sodium 112 mcg QAM PO 09/04/24 07:00 09/08/24 05:39 112 MCG Famotidine 40 mg DAILY PO 09/04/24 10:00 09/08/24 10:13 40 MG Spironolactone 100 mg DAILY PO 09/04/24 10:00 09/08/24 10:12 100 MG Ceftriaxone Sodium/Dextrose 50 ml @ 50 mls/hr DAILY IV 09/04/24 05:30 09/08/24 10:11 50 MLS/HR Midodrine 10 mg TID@0600,1200,1800 PO 09/04/24 12:00 09/08/24 17:52 10 MG Sodium Bicarbonate 650 mg TID PO 09/05/24 14:00 09/08/24 14:04 650 MG Docusate Sodium 100 mg DAILY PO 09/07/24 10:00 09/08/24 10:12 100 MG Polyethylene Glycol 17 gm DAILY PO 09/09/24 10:00 laboratory and microbiology Laboratory Tests 09/08/24 05:00 Test 09/08/24 05:00 Range/Units Serum Glucose 102 74-106 mg/dL Microbiology Date/Time Source Procedure Growth Status 09/05/24 05:22 Voided Urine Urine Culture - Final Complete 09/04/24 14:45 Ascities Fluid Gram Stain - Final Resulted 09/04/24 14:45 Ascities Fluid Body Fluid Culture - Preliminary Resulted Problem List/Assessment/Plan Problem List/Assessment/Plan Acute kidney injury likely in the setting of hepatorenal syndrome can not exclude acute tubular necrosis CKD 4 Nonalcoholic cirrhosis With ascites Metabolic acidosis Recommendations Stable renal function Currently on Lasix and spironolactone on Lasix and spironolactone Plan discussed with: Patient, Spouse, Other Dietary Evaluation Review Comments: 1) Iniitiate NutriHep bid d/t poor appetite. Encourage optimal PO intake 2) Advance to hepatic renal standard diet when medically feasible, pending BREAKER MACHINE TENDER approval. 3) Follow-up with gastroenterology, hepatology, and nephrology 4) Continue to monitor I&O, labs, and skin integrity Expected Outcomes/Goals: 1) appetite and labs to improve 2) diet to advance 3) follow-up in 3-5 days MARIANELA NEGRETE MD Sep 08, 2024 18:44
[2024-09-09] VITALS (8 sets, daily range): BP systolic 97–154; BP diastolic 47–101; PULSE 88–101; RESP 17–18; TEMP 97–97.5; O2SAT 93–99
[2024-09-09 05:56] LABS: Anion Gap 10 (5-15); Carbon Dioxide 21 mmol/L (20-31); Chloride 105 mmol/L (98-107); Potassium 4.8 mmol/L (3.5-5.1)
[2024-09-09 06:00] LABS: Sodium 136 mmol/L (136-145)
[2024-09-09 06:02] LABS: BUN/Creatinine Ratio 23.6 (10.0-20.0); Glucose 94 mg/dL (74-106)
[2024-09-09 06:09] LABS: Blood Urea Nitrogen 76 mg/dL (9-23)
--- NOTE | 2024-09-09 09:16 | DVHPN2 ---
Progress Note Date Seen: Sep 09, 2024 Resident Creating Document: GARRETT DEMPSEY RESIDENT Medical Necessity Reason Pt with a Central, PICC or Fol: Yes The following are medically ne: Wiley Catheter Subjective Review of Systems Patient seen and examined at the bedside. Patient reported no new abdominal complaints today. Yesterday patient refused enema so given MiraLax. Today patient said that she feels like going to have bowel movement. Patient reports: No new complaints, Feels better Objective vital signs Vital Sign Date Time Temp Pulse Resp B/P (MAP) Pulse Ox O2 Delivery O2 Flow Rate FiO2 09/09/24 08:33 97.2 96 17 99/54 (69) 93 97.2 09/08/24 19:55 Room Air* 0 21 Total Intake and Output 09/08/24 09/08/24 09/09/24 15:00 23:00 07:00 Intake Total 50 ml 500 ml 160 ml Output Total 300 ml 200 ml Balance 50 ml 200 ml -40 ml medications Current Medications Medications Dose Ordered Sig/Kaylee Route Start Time Stop Time Status Last Admin Dose Admin Ondansetron HCl 4 mg Q4HP PRN IV 09/04/24 05:30 Amiodarone HCl 200 mg BID PO 09/04/24 10:00 09/08/24 21:13 200 MG Furosemide 40 mg DAILY PO 09/04/24 10:00 09/08/24 10:13 40 MG Levothyroxine Sodium 112 mcg QAM PO 09/04/24 07:00 09/09/24 05:35 112 MCG Famotidine 40 mg DAILY PO 09/04/24 10:00 09/08/24 10:13 40 MG Spironolactone 100 mg DAILY PO 09/04/24 10:00 09/08/24 10:12 100 MG Ceftriaxone Sodium/Dextrose 50 ml @ 50 mls/hr DAILY IV 09/04/24 05:30 09/08/24 10:11 50 MLS/HR Midodrine 10 mg TID@0600,1200,1800 PO 09/04/24 12:00 09/09/24 05:36 10 MG Sodium Bicarbonate 650 mg TID PO 09/05/24 14:00 09/09/24 05:35 650 MG Docusate Sodium 100 mg DAILY PO 09/07/24 10:00 09/08/24 10:12 100 MG Polyethylene Glycol 17 gm DAILY PO 09/09/24 10:00 Examination Pt is lying on bed General Appearance: Alert, Oriented X3, Cooperative, Not in acute distress HEENT: Atraumatic, Mucous membranes moist/pink Respiratory: Clear to auscultation, Normal air movement, No added sounds Cardiovascular: Regular rate, Normal S1, Normal S2, No murmurs Abdominal: Active bowel sounds, Soft, no distention, no tenderness Extremities: No edema, Normal pulses, No tenderness/swelling Skin: No Significant rash, except past surgical scars Neuro: Normal speech, sensorimotor deficits none Psych/Mental Status: Mental status NL, Mood NL Nurse was there as sharperone during examination laboratory and microbiology Laboratory Tests 09/09/24 04:57 09/08/24 05:00 Test 09/09/24 04:57 Range/Units Serum Glucose 94 74-106 mg/dL Microbiology Date/Time Source Procedure Growth Status 09/05/24 05:22 Voided Urine Urine Culture - Final Complete 09/04/24 14:45 Ascities Fluid Gram Stain - Final Resulted 09/04/24 14:45 Ascities Fluid Body Fluid Culture - Preliminary Resulted Labs and/or images reviewed: Labs reviewed by me, Image(s) reviewed by me Problem List/Assessment/Plan Problem List/Assessment/Plan (1) Constipation (2) Paroxysmal A-fib (3) Liver cirrhosis (4) Acute renal injury (5) Ascites (6) Dehydration (7) Nausea and vomiting Assessment plan Enema but patient refused so give MiraLax Her renal function is improving Patient has developed some constipation likely due to diuretics and paracentesis Colace, MiraLax Hold her Eliquis at this time because of rising her PT to over 20 This patient is high-risk for bleeding because of underlying cirrhosis and if anticoagulation is required it has to be very low-dose Monitor labs and will follow up patient Okay to discharge She has wants to follow up in office as an outpatient for ongoing management of her chronic liver disease Thank you so much for the opportunity to consult on your patient. GI team will follw the patient . Reconsult if needed. Case an action plan discussed with Dr. Janet Guerrero. Complex care planning needed total 49 minutes of detailed discussion. Plan discussed with: Patient My Orders My Orders Orders - GARRETT DEMPSEY RESIDENT Procedure Category Date Status Time Tap Water Enema ORDERS 09/08/24 Transmitted 14:03 Polyethylene Glycol PHA 09/09/24 In Process 17g Powder (Miralax 10:00 Dietary Evaluation Review Comments: 1) Iniitiate NutriHep bid d/t poor appetite. Encourage optimal PO intake 2) Advance to hepatic renal standard diet when medically feasible, pending JOB SITE SUPERVISOR approval. 3) Follow-up with gastroenterology, hepatology, and nephrology 4) Continue to monitor I&O, labs, and skin integrity Expected Outcomes/Goals: 1) appetite and labs to improve 2) diet to advance 3) follow-up in 3-5 days GARRETT DEMPSEY RESIDENT Sep 09, 2024 09:16
[2024-09-09] MEDS: POLYETHYLENE GLYCOL 17 GM PWDR PO SCH (09:59)
[2024-09-09] MEDS: ONDANSETRON HCL 4 MG/2 ML VIAL IV PRN (10:58)
--- NOTE | 2024-09-09 14:13 | DVHDS2 ---
Discharge Summary Date of Admission Sep 04, 2024 at 05:27 Date of Discharge: September 10, 2024 Labs/Diagnostic Data: Laboratory Results Test 09/09/24 04:57 09/08/24 05:00 09/07/24 05:32 09/06/24 06:26 Sodium Level 136 mmol/L (136-145) Potassium Level 4.8 mmol/L (3.5-5.1) Chloride Level 105 mmol/L (98-107) Carbon Dioxide Level 21 mmol/L (20-31) Anion Gap 10 (5-15) Blood Urea Nitrogen 76 mg/dL (9-23) Creatinine 3.22 mg/dL (0.550-1.02) Glomerular Filtration Rate Calc 14 mL/min (>90) BUN/Creatinine Ratio 23.6 (10.0-20.0) Serum Glucose 94 mg/dL (74-106) Calcium Level 9.0 mg/dL (8.7-10.4) White Blood Count 13.4 10^3/uL (4.4-10.8) Red Blood Count 4.66 10^6/uL (4.0-5.20) Hemoglobin 14.6 g/dL (12.2-16.2) Hematocrit 42.7 % (36.0-46.0) Mean Corpuscular Volume 91.7 fL (80.0-100.0) Mean Corpuscular Hemoglobin 31.4 pg (28.0-32.0) Mean Corpuscular Hemoglobin Concent 34.3 g/dL (32.0-36.0) Red Cell Distribution Width 19.6 % (11.8-14.3) Platelet Count 128 10^3/uL (140-450) Mean Platelet Volume 8.9 fL (6.9-10.8) Neutrophils (%) (Auto) 85.3 % (37.0-80.0) Lymphocytes (%) (Auto) 9.6 % (10.0-50.0) Monocytes (%) (Auto) 4.9 % (0.0-12.0) Eosinophils (%) (Auto) 0.0 % (0.0-7.0) Basophils (%) (Auto) 0.2 % (0.0-2.0) Neutrophils # (Auto) 11.5 10 ^3/uL (1.6-8.6) Lymphocytes # (Auto) 1.3 10 ^3/uL (0.4-5.4) Monocytes # (Auto) 0.7 10 ^3/uL (0-1.3) Eosinophils # (Auto) 0 10 ^3/uL (0-0.8) Basophils # (Auto) 0 10 ^3/uL (0-0.2) Nucleated Red Blood Cells 0.1 % Prothrombin Time 19.6 sec (9.3-11.8) Prothrombin Time INR 1.98 (0.9-1.15) Total Bilirubin 2.0 mg/dL (0.2-1.0) Aspartate Amino Transferase (AST) 344 U/L (13-40) Alanine Aminotransferase (ALT) 190 U/L (7-40) Alkaline Phosphatase 132 U/L (46-116) Total Protein 6.7 g/dL (5.7-8.2) Albumin 3.4 g/dL (3.2-4.8) Thyroid Stimulating Hormone (TSH) 9.44 uIU/mL (0.55-4.78) Tumor Marker Alpha Fetoprotein 2.6 ng/mL (0.0-8.7) Parathyroid Hormone (Intact) 97.3 pg/mL (18.4-80.1) Test 09/05/24 05:52 09/05/24 05:22 09/04/24 15:00 09/04/24 14:45 Phosphorus Level 4.4 mg/dL (2.4-5.1) Magnesium Level 2.6 mg/dL (1.6-2.6) Ferritin 242.1 ng/mL (10-291) Urine Color Light-yellow (Yellow) Urine Clarity Clear (Clear) Urine pH 5.5 (5.0-9.0) Urine Specific [place] 1.014 (1.001-1.035) Urine Protein Trace (Negative) Urine Ketones Negative (Negative) Urine Blood 2+ /uL (Negative) Urine Nitrite Negative (Negative) Urine Bilirubin Negative (Negative) Urine Urobilinogen Normal mg/dL (Negative) Urine Leukocyte Esterase Trace /uL (Negative) Urine RBC 17 /hpf (0 - 4) Urine Microscopic WBC 11 /HPF (0-5) Urine Squamous Epithelial Cells None seen /hpf (<5) Urine Bacteria Few /hpf (None Seen) Urine Hyaline Casts Few /lpf (0 - 2) Urine Granular Casts Few /lpf (0) Urine Mucus Few (None Seen) Urine Yeast (Budding) Occasional /hpf (None Urine Sodium 52 mmol/L (40-220) Urine Glucose Normal mg/dL (Normal) Ammonia < 10 umol/L (11-32) Anti-Nuclear Antibody Screen Negative (Negative) Body Fluid Source Peritoneal fluid Body Fluid pH 8.0 Body Fluid WBC (Manual) 114 CUMM (0-200) Body Fluid RBC (Manual) 290 CUMM (0-2000) Body Fluid Mononuclear Cells 95 % Body Fluid Polymorphonuclear Cells 5 % (0-25) Body Fluid Glucose 111 mg/dL (.) Body Fluid Total Protein 2.4 g/dL (.) Test 09/04/24 04:58 09/04/24 01:50 Troponin I High Sensitivity 14 ng/L (</=34) Lipase 117 U/L (12-53) Hepatitis A Antibody Total Positive (Negative) Hepatitis B Surface Antigen Negative (Negative) Hepatitis B Surface Antibody Negative (Negative) Hepatitis B Core Total Antibody Negative (Negative) Hepatitis C Antibody Negative (Negative) Other Laboratory Tests 09/09/24 04:57 09/08/24 05:00 Brief Hx & Hospital Course: 83 yo F with non alcoholic cirrhosis, afib on eliquis, SSS w/ PPM, admitted for abdominal pain and vomiting. Received diagnostic para, removed 1L and sent sample, no SBP, cultures negative, was empirically covered with ceftriaxone. Also noticed to have worsening kidney function, nephro was consulted. nausea and vomiting improved over a couple days, now able to tolerate oral intake, likely GE. patient improved however renal function stay decreased. discussed with family regarding hospice placement, family agrees. Condition at Discharge: Fair Final Diagnosis/Problems List abdominal pain likely viral GE Discharge Disposition: Detention Facility [id number] Discharge Statement: "Patient was advised to return to the ER or call 911 if any headaches, dizziness, shortness of breath, chest pain, abdominal pain, bleeding, fevers, or worsening of medical condition. Patient was counseled about treatment plan, medications, possible side effects, patientverbalized understanding. All questions were answered to the best of my ability. This discharge took greater then 30 minutes in planning, reviewing documentation, counseling the patient, and discussing with other team members." ASSESSMENT ASSESSMENT Assessment abdominal pain likely viral GE pancreatitis ruled out SBP ruled out ascites non alcoholic cirrhosis SSS s/p PPM afib on eliquis HTN DJD CHRISTOPHER hepatorenal? on CKD Date of Service: September 10, 2024 Billing Provider: NICOL BRIONES MD Common Visit Codes: [id number] DISCH DAY >30min NICOL BRIONES MD Sep 09, 2024 14:13
[2024-09-09] MEDS ORDERED: SENNA 8.6 MG TAB PO PRN (16:00)
--- NOTE | 2024-09-09 17:26 | DVHPN2 ---
Progress Note Date Seen: Sep 09, 2024 Medical Necessity Reason Pt with a Central, PICC or Fol: Yes The following are medically ne: Wiley Catheter Subjective Patient reports: No new complaints Objective vital signs Vital Sign Date Time Temp Pulse Resp B/P (MAP) Pulse Ox O2 Delivery O2 Flow Rate FiO2 09/09/24 16:43 97.5 94 17 97/58 (71) 93 97.5 09/09/24 08:00 Room Air* 0 21 Total Intake and Output 09/08/24 09/08/24 09/09/24 15:00 23:00 07:00 Intake Total 50 ml 500 ml 160 ml Output Total 300 ml 200 ml Balance 50 ml 200 ml -40 ml medications Current Medications Medications Dose Ordered Sig/Kaylee Route Start Time Stop Time Status Last Admin Dose Admin Ondansetron HCl 4 mg Q4HP PRN IV 09/04/24 05:30 09/09/24 10:58 4 MG Amiodarone HCl 200 mg BID PO 09/04/24 10:00 09/09/24 10:02 200 MG Furosemide 40 mg DAILY PO 09/04/24 10:00 09/09/24 10:02 40 MG Levothyroxine Sodium 112 mcg QAM PO 09/04/24 07:00 09/09/24 05:35 112 MCG Famotidine 40 mg DAILY PO 09/04/24 10:00 09/09/24 10:00 40 MG Ceftriaxone Sodium/Dextrose 50 ml @ 50 mls/hr DAILY IV 09/04/24 05:30 09/09/24 09:59 50 MLS/HR Midodrine 10 mg TID@0600,1200,1800 PO 09/04/24 12:00 09/09/24 13:18 10 MG Sodium Bicarbonate 650 mg TID PO 09/05/24 14:00 09/09/24 13:18 650 MG Docusate Sodium 100 mg DAILY PO 09/07/24 10:00 09/09/24 10:00 100 MG Polyethylene Glycol 17 gm DAILY PO 09/09/24 10:00 09/09/24 09:59 17 GM Sennosides 17.2 mg QHSP PRN PO 09/09/24 16:00 laboratory and microbiology Laboratory Tests 09/09/24 04:57 09/08/24 05:00 Test 09/09/24 04:57 Range/Units Serum Glucose 94 74-106 mg/dL Microbiology Date/Time Source Procedure Growth Status 09/05/24 05:22 Voided Urine Urine Culture - Final Complete 09/04/24 14:45 Ascities Fluid Gram Stain - Final Resulted 09/04/24 14:45 Ascities Fluid Body Fluid Culture - Preliminary Resulted Problem List/Assessment/Plan Problem List/Assessment/Plan Acute kidney injury likely in the setting of hepatorenal syndrome can not exclude acute tubular necrosis CKD 4 Nonalcoholic cirrhosis With ascites Metabolic acidosis Recommendations Stable renal function hold Lasix and spironolactone 1L ivf Plan discussed with: Patient My Orders My Orders Orders - MARIANELA NEGRETE MD Procedure Category Date Status Time NS PHA 09/09/24 Transmitted 17:30 Dietary Evaluation Review Comments: 1) Iniitiate NutriHep bid d/t poor appetite. Encourage optimal PO intake 2) Advance to hepatic renal standard diet when medically feasible, pending HVAC MECHANIC approval. 3) Follow-up with gastroenterology, hepatology, and nephrology 4) Continue to monitor I&O, labs, and skin integrity Expected Outcomes/Goals: 1) appetite and labs to improve 2) diet to advance 3) follow-up in 3-5 days MARIANELA NEGRETE MD Sep 09, 2024 17:26
[2024-09-09] MEDS: SENNA 8.6 MG TAB PO ONE (17:30)
[2024-09-09] MEDS: SODIUM CHLORIDE 0.9% 1,000 ML IV ONE (18:15)
--- NOTE | 2024-09-09 20:36 | DVHPN2 ---
Assessment/Plan Assessment/Plan Progress note 83 year old female with JON cirrhosis, afib on eliquis, sick sinus on PPM admitted for nause and vomiting. seen today during rounds, improved. c/w PT, OOBTC. 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 on CKD start ceftriaxone tap if pocket available POCUS abd midodrine lasix aldactone nephro consult pain mgmt resume home meds and eliquis ss consult full code diet renal dvt ppx on eliquis Plan discussed with: Patient My Orders Orders - NICOL BRIONES MD Procedure Category Date Status Time * Legal Executive CONS 09/09/24 Transmitted Consult Senna Pod Tablet PHA 09/09/24 In Process (Senokot Tablet) 16:00 Date of Service: Sep 09, 2024 Billing Provider: NICOL BRIONES MD Common Visit Codes: [id number] INP/OBS CARE(MOD) NICOL BRIONES MD Sep 09, 2024 20:36
[2024-09-09] MEDS: MELATONIN 5 MG TAB PO ONE (21:12)
[2024-09-10] VITALS (7 sets, daily range): BP systolic 93–119; BP diastolic 36–72; PULSE 63–95; RESP 16–19; TEMP 97.4–97.9; O2SAT 91–100
[2024-09-10 06:47] LABS: Alanine Aminotransferase 224 U/L (7-40); Albumin 3.3 g/dL (3.2-4.8); Alkaline Phosphatase 167 U/L (46-116); Anion Gap 13 (5-15); Aspartate Aminotransferase 351 U/L (13-40); BUN/Creatinine Ratio 25.6 (10.0-20.0); Calcium 8.8 mg/dL (8.7-10.4); Carbon Dioxide 17 mmol/L (20-31); Chloride 104 mmol/L (98-107); Glucose 80 mg/dL (74-106); Potassium 5.1 mmol/L (3.5-5.1); Sodium 134 mmol/L (136-145); Total Protein 7.1 g/dL (5.7-8.2)
[2024-09-10 06:48] LABS: Bilirubin, Total 2.1 mg/dL (0.2-1.0); Blood Urea Nitrogen 92 mg/dL (9-23)
--- NOTE | 2024-09-10 10:43 | DVHPN2 ---
Progress Note Date Seen: September 10, 2024 Medical Necessity Reason Pt with a Central, PICC or Fol: Yes The following are medically ne: Wiley Catheter Subjective Patient reports: No new complaints Objective vital signs Vital Sign Date Time Temp Pulse Resp B/P (MAP) Pulse Ox O2 Delivery O2 Flow Rate FiO2 09/10/24 08:05 97.6 86 18 93/51 (65) 95 97.6 09/09/24 19:43 Room Air* 0 21 Total Intake and Output 09/09/24 09/09/24 09/10/24 15:00 23:00 07:00 Intake Total 50 ml 100 ml 100 ml Output Total 150 ml 275 ml Balance 50 ml -50 ml -175 ml medications Current Medications Medications Dose Ordered Sig/Kaylee Route Start Time Stop Time Status Last Admin Dose Admin Ondansetron HCl 4 mg Q4HP PRN IV 09/04/24 05:30 09/09/24 10:58 4 MG Amiodarone HCl 200 mg BID PO 09/04/24 10:00 09/10/24 09:39 200 MG Levothyroxine Sodium 112 mcg QAM PO 09/04/24 07:00 09/10/24 05:28 112 MCG Famotidine 40 mg DAILY PO 09/04/24 10:00 09/10/24 09:39 40 MG Ceftriaxone Sodium/Dextrose 50 ml @ 50 mls/hr DAILY IV 09/04/24 05:30 09/10/24 09:39 50 MLS/HR Midodrine 10 mg TID@0600,1200,1800 PO 09/04/24 12:00 09/10/24 05:26 10 MG Sodium Bicarbonate 650 mg TID PO 09/05/24 14:00 09/10/24 05:26 650 MG Docusate Sodium 100 mg DAILY PO 09/07/24 10:00 09/10/24 09:39 100 MG Polyethylene Glycol 17 gm DAILY PO 09/09/24 10:00 09/10/24 09:39 17 GM Sennosides 17.2 mg QHSP PRN PO 09/09/24 16:00 laboratory and microbiology Laboratory Tests 09/10/24 05:53 09/08/24 05:00 Test 09/10/24 05:53 Range/Units Serum Glucose 80 74-106 mg/dL Microbiology Date/Time Source Procedure Growth Status 09/05/24 05:22 Voided Urine Urine Culture - Final Complete 09/04/24 14:45 Ascities Fluid Gram Stain - Final Resulted 09/04/24 14:45 Ascities Fluid Body Fluid Culture - Preliminary Resulted Problem List/Assessment/Plan Problem List/Assessment/Plan Acute kidney injury likely in the setting of hepatorenal syndrome can not exclude acute tubular necrosis CKD 4 Nonalcoholic cirrhosis With ascites Metabolic acidosis Recommendations hold Lasix and spironolactone 1L ivf If patient decides to go on hospice no further renal recommendations Plan discussed with: Patient My Orders My Orders Orders - MARIANELA NEGRETE MD Procedure Category Date Status Time Sodium Chloride 0.9% PHA 09/10/24 In Process 10:30 Dietary Evaluation Review Comments: 1) Iniitiate NutriHep bid d/t poor appetite. Encourage optimal PO intake 2) Advance to hepatic renal standard diet when medically feasible, pending [employer] approval. 3) Follow-up with gastroenterology, hepatology, and nephrology 4) Continue to monitor I&O, labs, and skin integrity Expected Outcomes/Goals: 1) appetite and labs to improve 2) diet to advance 3) follow-up in 3-5 days MARIANELA NEGRETE MD September 10, 2024 10:43
--- NOTE | 2024-09-10 10:46 | DVHPN2 ---
Progress Note Date Seen: September 10, 2024 Resident Creating Document: GARRETT DEMPSEY RESIDENT Medical Necessity Reason Pt with a Central, PICC or Fol: Yes The following are medically ne: Wiley Catheter Subjective Review of Systems Patient seen and examined at the bedside. Patient reported no new GI complaints. Patient reported that yesterday she passed bowel movement. Continue MiraLax. Objective vital signs Vital Sign Date Time Temp Pulse Resp B/P (MAP) Pulse Ox O2 Delivery O2 Flow Rate FiO2 09/10/24 08:05 97.6 86 18 93/51 (65) 95 97.6 09/09/24 19:43 Room Air* 0 21 Total Intake and Output 09/09/24 09/09/24 09/10/24 14:59 22:59 06:59 Intake Total 50 ml 100 ml 100 ml Output Total 150 ml 275 ml Balance 50 ml -50 ml -175 ml medications Current Medications Medications Dose Ordered Sig/Kaylee Route Start Time Stop Time Status Last Admin Dose Admin Ondansetron HCl 4 mg Q4HP PRN IV 09/04/24 05:30 09/09/24 10:58 4 MG Amiodarone HCl 200 mg BID PO 09/04/24 10:00 09/10/24 09:39 200 MG Levothyroxine Sodium 112 mcg QAM PO 09/04/24 07:00 09/10/24 05:28 112 MCG Famotidine 40 mg DAILY PO 09/04/24 10:00 09/10/24 09:39 40 MG Ceftriaxone Sodium/Dextrose 50 ml @ 50 mls/hr DAILY IV 09/04/24 05:30 09/10/24 09:39 50 MLS/HR Midodrine 10 mg TID@0600,1200,1800 PO 09/04/24 12:00 09/10/24 05:26 10 MG Sodium Bicarbonate 650 mg TID PO 09/05/24 14:00 09/10/24 05:26 650 MG Docusate Sodium 100 mg DAILY PO 09/07/24 10:00 09/10/24 09:39 100 MG Polyethylene Glycol 17 gm DAILY PO 09/09/24 10:00 09/10/24 09:39 17 GM Sennosides 17.2 mg QHSP PRN PO 09/09/24 16:00 Examination Pt is lying on bed General Appearance: Alert, Oriented X3, Cooperative, Not in acute distress HEENT: Atraumatic, Mucous membranes moist/pink Respiratory: Clear to auscultation, Normal air movement, No added sounds Cardiovascular: Regular rate, Normal S1, Normal S2, No murmurs Abdominal: Active bowel sounds, Soft, mild distention, no tenderness Extremities: No edema, Normal pulses, No tenderness/swelling Skin: No Significant rash, except past surgical scars Neuro: Normal speech, sensorimotor deficits none Psych/Mental Status: Mental status NL, Mood NL Nurse was there as sharperone during examination laboratory and microbiology Laboratory Tests 09/10/24 05:53 09/08/24 05:00 Test 09/10/24 05:53 Range/Units Serum Glucose 80 74-106 mg/dL Microbiology Date/Time Source Procedure Growth Status 09/05/24 05:22 Voided Urine Urine Culture - Final Complete 09/04/24 14:45 Ascities Fluid Gram Stain - Final Resulted 09/04/24 14:45 Ascities Fluid Body Fluid Culture - Preliminary Resulted Labs and/or images reviewed: Labs reviewed by me, Image(s) reviewed by me Problem List/Assessment/Plan Problem List/Assessment/Plan (1) Constipation (2) Paroxysmal A-fib (3) Liver cirrhosis (4) Acute renal injury (5) Ascites (6) Dehydration (7) Nausea and vomiting Assessment plan Colace, MiraLax Hold her Eliquis at this time because of rising her PT to over 20 This patient is high-risk for bleeding because of underlying cirrhosis and if anticoagulation is required it has to be very low-dose Monitor labs and will follow up patient Okay to discharge with the MiraLax She has wants to follow up in office as an outpatient for ongoing management of her chronic liver disease Thank you so much for the opportunity to consult on your patient. GI team will signoff the patient . Reconsult if needed. Case an action plan discussed with Dr. Janet Guerrero. Complex care planning needed total 49 minutes of detailed discussion. Plan discussed with: Patient Dietary Evaluation Review Comments: 1) Iniitiate NutriHep bid d/t poor appetite. Encourage optimal PO intake 2) Advance to hepatic renal standard diet when medically feasible, pending [employer]CHNICIAN approval. 3) Follow-up with gastroenterology, hepatology, and nephrology 4) Continue to monitor I&O, labs, and skin integrity Expected Outcomes/Goals: 1) appetite and labs to improve 2) diet to advance 3) follow-up in 3-5 days GARRETT DEMPSEY RESIDENT September 10, 2024 10:46
[2024-09-10] MEDS: SODIUM CHLORIDE 0.9% 1,000 ML IV ONE (11:15)
[2024-09-11 01:00] VITALS: BP 105/43; PULSE 95; RESP 17; O2SAT 96
[2024-09-11 05:00] VITALS: BP 93/65; PULSE 92; RESP 17; O2SAT 93
[2024-09-11 09:00] VITALS: BP 107/66; PULSE 97; RESP 16; TEMP 97.5; O2SAT 94
--- NOTE | 2024-09-11 09:54 | DVHPN2 ---
Progress Note Date Seen: September 11, 2024 Resident Creating Document: GARRETT DEMPSEY RESIDENT Medical Necessity Reason Pt with a Central, PICC or Fol: Yes The following are medically ne: Wiley Catheter Subjective Review of Systems Patient seen and examined at the bedside. Patient reported no new GI complaints. Continue MiraLax. Patient reports: Feels better Objective vital signs Vital Sign Date Time Temp Pulse Resp B/P (MAP) Pulse Ox O2 Delivery O2 Flow Rate FiO2 09/11/24 05:00 92 17 93/65 (74) 93 09/10/24 21:00 97.9 97.9 09/10/24 20:00 Room Air* 0 21 Total Intake and Output 09/10/24 09/10/24 09/11/24 14:59 22:59 06:59 Intake Total 50 ml 540 ml 600 ml Output Total 300 ml 400 ml Balance 50 ml 240 ml 200 ml medications Current Medications Medications Dose Ordered Sig/Kaylee Route Start Time Stop Time Status Last Admin Dose Admin Ondansetron HCl 4 mg Q4HP PRN IV 09/04/24 05:30 09/09/24 10:58 4 MG Amiodarone HCl 200 mg BID PO 09/04/24 10:00 09/10/24 21:09 200 MG Levothyroxine Sodium 112 mcg QAM PO 09/04/24 07:00 09/11/24 05:33 112 MCG Famotidine 40 mg DAILY PO 09/04/24 10:00 09/10/24 09:39 40 MG Ceftriaxone Sodium/Dextrose 50 ml @ 50 mls/hr DAILY IV 09/04/24 05:30 09/10/24 09:39 50 MLS/HR Midodrine 10 mg TID@0600,1200,1800 PO 09/04/24 12:00 09/11/24 05:33 10 MG Sodium Bicarbonate 650 mg TID PO 09/05/24 14:00 09/11/24 05:33 650 MG Docusate Sodium 100 mg DAILY PO 09/07/24 10:00 09/10/24 09:39 100 MG Polyethylene Glycol 17 gm DAILY PO 09/09/24 10:00 09/10/24 09:39 17 GM Sennosides 17.2 mg QHSP PRN PO 09/09/24 16:00 Examination Pt is lying on bed General Appearance: Alert, Oriented X3, Cooperative, Not in acute distress HEENT: Atraumatic, Mucous membranes moist/pink Respiratory: Clear to auscultation, Normal air movement, No added sounds Cardiovascular: Regular rate, Normal S1, Normal S2, No murmurs Abdominal: Active bowel sounds, Soft, mild distention, no tenderness Extremities: No edema, Normal pulses, No tenderness/swelling Skin: No Significant rash, except past surgical scars Neuro: Normal speech, sensorimotor deficits none Psych/Mental Status: Mental status NL, Mood NL Nurse was there as sharperone during examination laboratory and microbiology Laboratory Tests 09/10/24 05:53 09/08/24 05:00 Test 09/10/24 05:53 Range/Units Serum Glucose 80 74-106 mg/dL Microbiology Date/Time Source Procedure Growth Status 09/05/24 05:22 Voided Urine Urine Culture - Final Complete 09/04/24 14:45 Ascities Fluid Gram Stain - Final Complete 09/04/24 14:45 Ascities Fluid Body Fluid Culture - Final Complete Labs and/or images reviewed: Labs reviewed by me, Image(s) reviewed by me Problem List/Assessment/Plan Problem List/Assessment/Plan Constipation-resolving Paroxysmal A-fib Liver cirrhosis Acute renal injury-worsening Ascites Dehydration Nausea and vomiting Assessment plan Colace, MiraLax Hold her Eliquis at this time because of rising her PT to over 20 This patient is high-risk for bleeding because of underlying cirrhosis and if anticoagulation is required it has to be very low-dose Monitor labs and will follow up patient Okay to discharge with the MiraLax She has wants to follow up in office as an outpatient for ongoing management of her chronic liver disease Thank you so much for the opportunity to consult on your patient. GI team will signoff the patient . Reconsult if needed. Case an action plan discussed with Dr. Janet Guerrero. Complex care planning needed total 49 minutes of detailed discussion. Plan discussed with: Patient Dietary Evaluation Review Comments: 1) Iniitiate NutriHep bid d/t poor appetite. Encourage optimal PO intake 2) Advance to hepatic renal standard diet when medically feasible, pending [employer] approval. 3) Follow-up with gastroenterology, hepatology, and nephrology 4) Continue to monitor I&O, labs, and skin integrity Expected Outcomes/Goals: 1) appetite and labs to improve 2) diet to advance 3) follow-up in 3-5 days GARRETT DEMPSEY RESIDENT September 11, 2024 09:54
[2024-09-11 13:00] VITALS: BP 109/72; PULSE 93; RESP 16; TEMP 97.3; O2SAT 90
--- NOTE | 2024-09-11 15:08 | DVHPN2 ---
Assessment/Plan Assessment/Plan Progress note 83 year old female with JON cirrhosis, afib on eliquis, sick sinus on PPM admitted for nause and vomiting. seen today during rounds, for dc to hospice placement. 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 on CKD start ceftriaxone tap if pocket available POCUS abd midodrine lasix aldactone nephro consult pain mgmt resume home meds and eliquis ss consult full code diet renal dvt ppx on eliquis Plan discussed with: Patient Date of Service: September 11, 2024 Billing Provider: NICOL BRIONES MD Common Visit Codes: [id number] INP/OBS CARE(MOD) NICOL BRIONES MD September 11, 2024 15:08
[2024-09-11 16:43] VITALS: BP 109/75; PULSE 89; RESP 16; TEMP 36.3; O2SAT 98
[2024-09-11 17:00] VITALS: BP 107/70; PULSE 98; RESP 18; TEMP 97.5; O2SAT 96
== END 2024-09-11 18:15 | disposition hospice, inpatient (51) | DRG 432 ==
LOC: ER 01:08 → EDBD 01:08 → EDUNIT# 01:08 → OVERFLOW 05:27 → WEST WING 12:56 → EAST 18:18
PROVIDERS: ADMIT Student in an Organized Health Care Education/Training Program; ATTEND Student in an Organized Health Care Education/Training Program
PROC: 0W9G3ZZ Drainage of Peritoneal Cavity, Percutaneous Approach (ICD-10-PCS; principal; 2024-09-04)
DX: K74.60 Unspecified cirrhosis of liver (principal); K76.7 Hepatorenal syndrome; D68.9 Coagulation defect, unspecified; E87.20 Acidosis, unspecified; N17.9 Acute kidney failure, unspecified; R18.8 Other ascites; E87.1 Hypo-osmolality and hyponatremia; Z51.5 Encounter for palliative care; A08.4 Viral intestinal infection, unspecified; K29.70 Gastritis, unspecified, without bleeding; E86.0 Dehydration; I12.9 Hypertensive chronic kidney disease with stage 1 through stage 4 chronic kidney disease, or unspecified chronic kidney disease; M19.09 Primary osteoarthritis, other specified site; K75.81 Nonalcoholic steatohepatitis (NASH); N18.9 Chronic kidney disease, unspecified; K59.00 Constipation, unspecified; I48.0 Paroxysmal atrial fibrillation; Z79.2 Long term (current) use of antibiotics; Z79.84 Long term (current) use of oral hypoglycemic drugs; Z79.01 Long term (current) use of anticoagulants; Z82.49 Family history of ischemic heart disease and other diseases of the circulatory system; Z95.0 Presence of cardiac pacemaker
CPT/HCPCS: 36415; 49083; 71045; 74018; 74176; 76705; 80048; 80053; 81001; 82105; 82140; 82728; 83690; 83735; 83970; 83986; 84100; 84300; 84443; 84484; 85025; 85610; 86038; 86704; 86706; 86708; 86803; 87086; 87205; 87340; 89051; 93005; 96361; 96365; 96367; 97110; 97116; 97163; 97530; G0378; J2405; P9047